=== PATIENT | male | born 1935 | race Caucasian/White ===

== ENCOUNTER 2021-12-23 08:36 | Outpatient (CLI) | payer MEDICARE, SELFPAY ==
--- NOTE | 2021-12-23 09:01 | ECHO_ITS ---
Patient Info Name: Bhupendra Vila Age: 85 years : 1935 Gender: Male Ht: 72 in Wt: 240 lbs BSA: 2.38 m2 HR: 74 bpm BP: 171 / 105 mmHg Exam Date: 12/23/2021 9:23 AM Exam Location: [facility] Pulmonary Patient Status: Outpatient Admit Date: 12/23/2021 Staff Ordering Physician: Randolph Claudio MD Family Protection Specialist: Wood Pelayo, ILENE, RT Attending Provider: Randolph Claudio MD Exam Type: CA echo doppler color flow Study Info Indications I51.89 - Other ill-defined heart diseases Complete two-dimensional, color flow and Doppler transthoracic echocardiogram is performed. Strain analysis performed. Summary 1. Complete two-dimensional, color flow and Doppler transthoracic echocardiogram is performed. 2. LV size and wall thickness is at upper limits of normal; sigmoid hypertrophy. Normal LV systolic function, ejection fraction 65-70%. Diastolic dysfunction is present with elevated left atrial pressures. Global longitudinal strain is abnormal at -11%. Severe left atrial enlargement, moderate right atrial enlargement. Normal mitral valve structure, mild mitral regurgitation. Mild aortic valve sclerosis, no hemodynamically significant stenosis; mild aortic regurgitation. Mild TR, mild pulmonary hypertension, RVSP 38 mmHg. Left Ventricle Left ventricular chamber dimension is normal. Left ventricular systolic function is normal, estimated at 65-70%. The left ventricular diastolic function is abnormal. E/e' 16.8 is abnormal. Right Ventricle Right ventricular chamber dimension is normal. Right ventricular systolic function is normal. Left Atria Left atrial chamber dimension is severely enlarged. Right Atria Right atrial chamber dimension is moderately enlarged. Aortic Valve There is mild aortic valve sclerosis. There is no aortic valve stenosis. There is mild aortic valve regurgitation. Pulmonic Valve The pulmonic valve is not well visualized. Mitral Valve The mitral valve has normal leaflets. There is mild mitral valve regurgitation. Tricuspid Valve The tricuspid valve leaflets are normal. There is mild tricuspid valve regurgitation. Mild pulmonary hypertension, estimated pulmonary arterial systolic pressure is 38 mmHg. Pericardium/Pleural The pericardium appears epicardial fat pad. Inferior Vena Cava Normal inferior vena cava with >50% collapse upon inspiration consistent with normal right atrial pressure, 10 mmHg. Aorta The aortic root size at the sinus of Valsalva is normal. Left Ventricular Outflow Tract Name Value Normal LVOT 2D LVOT Diameter 2.0 cm LVOT Doppler LVOT Peak Gradient 2 mmHg LVOT Mean Gradient 1 mmHg LVOT VTI 16 cm LVOT VTI/AV VTI Ratio 0.8 LVOT Stroke Volume 52 ml LVOT CO 4.5 l/min LVOT CI 1.9 l/min/m2 Mitral Valve Name Value Normal --------
== END 2021-12-23 08:37 | disposition home or self-care (01) ==
LOC: ANHCARD 08:38
PROVIDERS: PCP Family Medicine; Visit Provider Family Medicine
DX: I51.89 Other ill-defined heart diseases (principal); R06.00 Dyspnea, unspecified
CPT/HCPCS: 93306

== ENCOUNTER 2022-01-29 10:42 | Inpatient (IN) | payer MEDICARE, SELFPAY ==
[2022-01-29] VITALS (10 sets, daily range): BP systolic 107–176; BP diastolic 74–110; PULSE 67–104; RESP 15–22; TEMP 36.1–36.6; O2SAT 96–99; BMI 28.8
--- NOTE | ~2022-01-29 | CT_ITS ---
EXAMINATION: CTA chest PE protocol DATE: 01/29/2022 13:18 INDICATION: Dyspnea, shortness of breath. Elevated d-dimer. Covid-positive. TECHNIQUE: Computed tomography angiography (CTA) of the chest was performed with 100 mL Omnipaque-350 intravenous contrast timed to evaluate the pulmonary arteries. Coronal maximum intensity projection 3D-reconstructions were created by the technologist. Automated exposure control and iterative reconst ruction technique were employed. Exam dose: 638.87 mGy-cm total exam DLP. COMPARISON: 01/29/2022 portable AP chest 11/02/2018 CT thorax FINDINGS: There is diagnostic contrast enhancement of the pulmonary arteries and no evidence of pulmo nary embolism. Mild thoracic aortic aneurysm, the aortic arch measuring up to approximately 3.1 cm diameter. Cardiom egaly. No pericardial effusion. No hilar or mediastinal mass lesion or lymphadenopathy. Stable up to approximately 19 mm posterior right apical mass since. There is interval mild increased size of a posterior pleural-based mass at the superior segment of th e left lower lobe, measuring up to approximately 3 cm maximal depth, 6.5 cm transverse dimension. The re are some calcifications within the soft tissue density. There is a much smaller pleural-based opacity in the lingula, measuring 6 mm depth, 18 mm width. Pleural-based 4.7 x 8.7 mm opacity in the right lower lobe, stable since 11/02/2018. Scattered peripheral reticular opacities in both lungs Mild emphysematous changes of the lungs. 4.3 cm cyst at the upper pole of the right kidney. Normal morphology of the adrenal glands. Small sliding hiatal hernia. Prominent osteoarthritic change at both glenohumeral joints Severe degenerative disc disease at C6-7. Mild anterior wedge compression fracture deformity at T2 and T3. More prominent anterior wedge compre ssion fracture deformities at T6 and T8. Diffuse idiopathic skeletal hyperostosis of the thoracic spine. Diffuse osteopenia. IMPRESSION: No evidence of pulmonary embolism Emphysema Chronic pleural based opacities, stable or minimally changed since 11/02/2018 and chronic scattered in terstitial changes Reviewed, dictated and finalized at [facility]. Reviewed, dictated and finalized at [facility]. IMPRESSION: No evidence of pulmonary embolism Emphysema Chronic pleural based opacities, stable or minimally changed since 11/02/2018 an d chronic scattered interstitial changes
--- NOTE | ~2022-01-29 | XR_ITS ---
EXAMINATION: XR chest 1V portable DATE: 01/29/2022 11:19 INDICATION: Shortness of breath. COVID positive. TECHNIQUE: frontal view of the chest was obtained. COMPARISON: Chest radiograph dated 07/27/2017 FINDINGS: Chronic nodular pleural parenchymal scarring at the right apex. Persistent airspace opacity left midl sierra zone corresponding to a previously biopsied pleural-based mass with pathology reportedly consiste nt with nodular fibrosis. Additional subtle opacities in the right mid and left lower lung zones whic h are new since the prior study. No pleural effusion or pneumothorax. The cardiomediastinal silhouett e is within normal limits for AP technique. Tortuous thoracic aorta. Moderate to severe bilateral gle nohumeral osteoarthritis. IMPRESSION: 1. Subtle opacities in the right mid and left lower lung zones which are new since the prior study. D ifferential would include pneumonia, atelectasis or pulmonary edema in the acute setting or more plate keeper aureliano interstitial lung disease. 2. Persistent opacity in the left midlung zone consistent with previously biopsy-proven pleural-based nodular fibrosis. Reviewed, dictated and finalized at [facility]. IMPRESSION: 1. Subtle opacities in the right mid and left lower lung zones which are new si nce the prior study. Differential would include pneumonia, atelectasis or pulmo nary edema in the acute setting or more chronic interstitial lung disease. 2. Persistent opacity in the left midlung zone consistent with previously biops y-proven pleural-based nodular fibrosis.
--- NOTE | 2022-01-29 10:53 | ECG_ITS ---
Measurements Intervals [place] Rate: 75 P: SC: 0 QRS: 21 QRSD: 95 T: 18 QT: 414 QTc: 463 Interpretive Statements ATRIAL FIBRILLATION BASELINE ARTIFACT- I, II, III, AVR, AVL, AVF, V1 ABNORMAL ECG Electronically Signed On 01-29-2022 12:19:06 CDT by Sony Vides D.O.
--- NOTE | 2022-01-29 11:00 | ED.SOB ---
HPI - SOB/Dyspnea General Chief Complaint: Shortness of Breath/Dyspnea Stated Complaint: dizziness, unsteady gait, sob - covid exposure Time Seen by Provider: 01/29/22 10:56 History of Present Illness HPI Narrative: The patient is an 86-year-old male with a history of hypertension, dyslipidemia, diastolic dysfunction, atrial fibrillation, chronic kidney disease, prostate cancer presenting to the emergency department for evaluation of multiple complaints. Patient reports he has been diffusely weak with fatigue over the past 4 days. Patient was recently treated outpatient for urinary tract infection in which he finished his antibiotic course. Patient denies any lingering dysuria or hematuria. He reports that his tested positive for COVID and he subsequently tested positive with an at-home test yesterday. Patient is vaccinated and boosted but does report cough as well as shortness of breath with exertion. He denies any current chest pain. He denies fever, chills, does report mild rhinorrhea and a tickle in his throat. He denies leg swelling or calf pain. Related Data Home Medications Medication Instructions Recorded Confirmed furosemide 40 mg tablet 40 mg PO DAILY PRN 12/03/21 12/03/21 Allergies Allergy/AdvReac Type Severity Reaction Status Date / Time No Known Allergies Allergy Verified 01/29/22 11:03 Review of Systems Review of Systems: CONSTITUTIONAL: Denies fever, chills, or sweats. EYES: Denies visual changes, redness, or discharge. ENT: Reports rhinorrhea, congestion, sore throat CARDIOVASCULAR: Denies chest pain, palpitations, or edema. RESPIRATORY: Reports cough and shortness of breath GASTROINTESTINAL: Denies abdominal pain, nausea, vomiting, or diarrhea. GENITOURINARY: Denies dysuria or hematuria. SKIN: Denies rash or itching. MUSCULOSKELETAL: Denies back pain, joint pain, or myalgia. 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 Chronic pain of right ankle CKD (chronic kidney disease) stage 3, GFR 30-59 ml/min Diastolic dysfunction Dyslipidemia Essential (primary) hypertension History of prostate cancer Mass of left lung Prostate cancer (~2015) Right retinal detachment 03/2016 Unspecified osteoarthritis, unspecified site Vitamin D deficiency Surgical History Surgical History History of back surgery (~2010) Sacrolplasty L3-5 Lumbar Decompression L4-5 w/ Fusion History of bilateral knee replacement (~1999) 1999, 2004 S/P TURP 10/2015 Family History Family History Sibling Hypertension Father Family history of lung cancer, Onset Age: 68 Mother Family history of dementia, Onset Age: 93 Mother Hypertension Familial Alzheimer's disease of late onset Social History Social History Tobacco type: cigarettes Second hand tobacco smoke exposure: No Smoking end date: 07/19/01 Alcohol intake: former Alcohol use details: quit drinking alcohol in 2010 Substance use: never Substance use type: does not use Gender identity (if verbalized by the patient): Male Exam Narrative: GENERAL: Awake, alert, conversant HEAD: Normocephalic, atraumatic. EYES: PERRLA and EOMI. ENT: Nares clear, no rhinorrhea or epistaxis. Mucous membranes dry. NECK: Supple. CHEST: Coarse respirations bilaterally, no wheezing or crackles HEART: Regular rate, sinus rhythm ABDOMEN:Non distended, non tender EXTREMITIES: Normal range of motion. No edema. No calf tenderness, erythema, edema or induration bilaterally. SKIN: Warm, dry, no rash. NEURO:No focal deficits. Alert and oriented x3 Course Vital Signs Vital si
[2022-01-29 11:11] LABS: Basophils Percent Auto 0.3 % (0.2-1.2); Hematocrit 39.2 % (42.0-52.0); Hemoglobin 14.2 g/dL (14.0-18.0); Immature Granulocyte Absolute 0.01 K/mm3 (0.00-0.031); Immature Granulocyte Percent A 0.3 % (0-0.5); Lymphocytes Absolute Auto 0.57 K/mm3 (0.9-3.2); Lymphocytes Percent Auto 16.4 % (18.3-44.2); Mean Corpuscular HGB Conc 36.2 g/dl (32-36); Mean Corpuscular Hemoglobin 31.1 pg (26-34); Mean Corpuscular Volume 85.8 fl (80-100); Mean Platelet Volume 10.3 fl (7.4-10.4); Monocytes Absolute Auto 0.3 K/mm3 (0.1-0.6); Monocytes Percent Auto 9.2 % (2.6-8.5); Neutrophils Absolute Auto 2.6 K/mm3 (1.3-6.7); Neutrophils Percent Auto 73.8 % (45.5-73.1); Platelet Count Result 161 k/mm3 (150-375); Red Blood Count 4.57 M/mm3 (4.6-6.20); Red Cell Distribution Width 13.5 % (11.5-14.5); White Blood Count 3.5 K/mm3 (4.5-10.0)
[2022-01-29 11:29] LABS: Alanine Aminotransferase 27 U/L (6-50); Albumin Level 4.4 g/dL (3.5-5.1); Alkaline Phosphatase 79 U/L (38-126); Anion Gap 7 mmol/L (8-16); Aspartate Amino Transferase 50 U/L (17-59); Bilirubin,Total 0.7 mg/dL (0.2-1.3); Blood Urea Nitrogen 20 mg/dL (9-20); Calcium 8.5 mg/dL (8.4-10.2); Carbon Dioxide 25 mmol/L (22-30); Chloride 84 mmol/L (98-107); Creatine Kinase 313 U/L (55-170); Estimated CRCL calculation 44 ml/min; Estimated Glomerular Filt Rate 48; Glucose 112 mg/dL (65-110); Potassium 4.3 mmol/L (3.4-5.0); Sodium 116 mmol/L (137-145)
[2022-01-29 11:37] LABS: INR 3.6; Prothrombin Time 34.9 Seconds (11.1-14.7)
[2022-01-29 11:38] LABS: Partial Thromboplastin Time 49.4 SECONDS (22.3-36.8)
[2022-01-29 11:39] LABS: NT Pro B Type Natriuretic Pept 1750 pg/mL (5-100); Troponin I 0.398 ng/mL (0.000-0.034)
[2022-01-29] MEDS: SODIUM CHLORIDE 0.9% IV 500 ML 999 ML IV CONT (11:52)
[2022-01-29 11:56] LABS: SARS-CoV-2 RNA PCR Positive
[2022-01-29 12:04] LABS: D Dimer 0.99 ug/mL (<0.48)
[2022-01-29 13:11] LABS: Appearance Urine Clear (Clear); Bilirubin Urine Negative (Negative); Color Urine Yellow (Yellow); Glucose Urine UA Negative (Negative); Ketones Urine Negative (Negative); Leukocyte Esterase Ur Negative LEU/UL (Negative); Nitrate Urine Negative (Negative); Protein Urine Negative (Negative); Specific Grav Ur 1.015 (1.001-1.035); Urobilinogen Urine 0.2 mg/dL (<2.0); pH Urine 6.5 (5.0-9.0)
[2022-01-29 13:16] LABS: Sodium Urine Random 28 meq/L
[2022-01-29 13:19] LABS: Anion Gap 5 mmol/L (8-16); Blood Urea Nitrogen 19 mg/dL (9-20); Calcium 7.9 mg/dL (8.4-10.2); Carbon Dioxide 25 mmol/L (22-30); Chloride 86 mmol/L (98-107); Estimated CRCL calculation 44 ml/min; Estimated Glomerular Filt Rate 48; Glucose 105 mg/dL (65-110); Potassium 4.4 mmol/L (3.4-5.0); Sodium 116 mmol/L (137-145)
[2022-01-29 13:22] LABS: Creatinine Urine 71.3 mg/dL
[2022-01-29 13:23] LABS: Mucus Urine Rare /lpf; RBC Urine 0-2 /hpf (0-2); Squamous Epithelial Cell Urine Rare /hpf (Few); WBC Urine 0-3 /hpf
[2022-01-29 13:54] LABS: Add Urine Microscopic? YES; Blood Urine Trace-Intact (Negative)
--- NOTE | 2022-01-29 13:57 | PM.IMHP ---
H&P: HPI History of Present Illness Date/Time: 01/29/22 1257 Chief Complaint: Dyspnea Narrative: This 86-year-old male patient with significant past medical history of atrial fibrillation, chronic low back pain without sciatica, chronic kidney disease stage 3, diastolic dysfunction heart failure, dyslipidemia, hypertension, history of prostate cancer, left lung mass, vitamin-D deficiency, status post TURP, status post bilateral knee replacements, status post back surgery presents to the emergency room today with complaints of approximately 3-4 days of increased weakness, dyspnea and new cough. He reports that he has increased fatigue. Yesterday his spouse tested positive for COVID 19 and today he feels that he has increasing shortness of breath with exertion upon arrival to the emergency room also learned that he is positive for COVID-19. He has remained afebrile, does report some intermittent chills with a runny nose and a tickle in his throat. Patient has recently been treated for urinary tract infection, has finished all antibiotics and denies any current symptoms of urinary burning, urgency, frequency, hematuria. Emergency room workup was performed and is significant for a sodium level of 116, chloride of 84, troponin 0.398, BNP of 1750, and elevated D-dimer of 0.99. Imaging was performed. Chest x-ray showed a right middle and left lower lobe opacities and persistent opacities in the left mid lung. CTA of the chest was performed secondary to the elevation of the D-dimer and it demonstrated chronic pleural based opacities that are either stable or minimally changed since 11/02/2018 with chronic scattered interstitial changes. There was emphysema noted but no appreciable pulmonary embolism. Other findings on CTA of the chest included mild interval increased size of a posterior pleural-based mass at the superior segment of the left lower lobe measuring up to 3 cm in depth and 6.5 cm transverse dimension. There are some noted calcifications within the soft tissue density. There are scattered peripheral reticular opacities in both lungs with mild emphysematous changes. In addition there is a 4.3 cm cyst at the upper pole of the right kidney with findings also of mild anterior wedge compression fracture deformity at T2 and T3. There is a more prominent anterior wedge compression fracture at T6 and T8. There is diffuse osteopenia of the spine. consult for patient were placed in the ED to include Nephrology as well as Cardiology, labs are ordered to trend serial troponins, and patient is being admitted to the hospital for further management by hospitalist services in conjunction with specialties for correction of his hyponatremia, management of his chronic conditions and further evaluation and monitoring of his acute COVID-19 status. 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 At the time of my assessment patient is without any complaints of chest pain, he reports that he does have some mild shortness of breath that is worse if he tries to move around, he denies any nausea, vomiting, diarrhea or urinary complaints of urgency, frequency, hematuria, or dysuria. Review of Systems Review of Systems: All systems reviewed & are unremarkable except as noted in HPI and below PMFSH Past Medical History Medical History Atrial fibrillation Chronic low back pain without sciatica Chronic pain of right ankle CKD (chronic kidney disease) stage 3, GFR 30-59 ml/min Diastolic dysfunction Dyslipidemia Essential (primary) hypertension History of prostate cancer Mass of left lung Prostate cancer (~2015) Right retinal detachment 03/2016 Unspecified osteoarthritis, unspecified site Vitamin D deficiency Surgical History Surgical History History of back surgery (~2010) Sacrolplasty L3-5 Lumbar Decompre
[2022-01-29 15:02] LABS: Sodium Urine Random 27 meq/L
[2022-01-29] MEDS: ACETAMINOPHEN 325 MG TABLET 650 MG PO (15:03)
[2022-01-29] MEDS: ASPIRIN 81 MG CHEWABLE TABLET 324 MG PO (15:04)
[2022-01-29] MEDS: DEXAMETHASONE SOD PHOS INJ 4 MG/ML VIAL 6 MG IV PUSH (15:06)
[2022-01-29 15:12] LABS: Troponin I 0.018 ng/mL (0.000-0.034)
[2022-01-29] MEDS: SODIUM CHLORIDE 0.9% IV 1,000 ML 125 ML IV CONT ×2 (15:12→23:30)
[2022-01-29] MEDS: ALBUTEROL SULFATE (*SP) AEROSOL 1 PUFF 2 PUFF INHALATION (18:05)
[2022-01-29 19:19] LABS: Anion Gap 9 mmol/L (8-16); Blood Urea Nitrogen 22 mg/dL (9-20); Calcium 8.3 mg/dL (8.4-10.2); Carbon Dioxide 21 mmol/L (22-30); Chloride 88 mmol/L (98-107); Estimated CRCL calculation 41 ml/min; Estimated Glomerular Filt Rate 52; Glucose 146 mg/dL (65-110); Potassium 4.1 mmol/L (3.4-5.0); Sodium 118 mmol/L (137-145)
[2022-01-29 19:29] LABS: Troponin I 0.017 ng/mL (0.000-0.034)
[2022-01-29] MEDS: carvediloL 25 MG TABLET PO (21:46)
[2022-01-29] MEDS: SIMVASTATIN 20 MG TABLET 40 MG PO (21:47)
[2022-01-30] VITALS: BP 146/54; PULSE 81; PULSE 88; RESP 18; RESP 20; TEMP 36.3; O2SAT 98; O2SAT 99
[2022-01-30 00:17] LABS: Sodium 119 mmol/L (137-145)
[2022-01-30 02:00] VITALS: PULSE 82
[2022-01-30] MEDS: ALBUTEROL SULFATE (*SP) AEROSOL 1 PUFF 2 PUFF INHALATION ×3 (02:51→08:09)
[2022-01-30 04:00] VITALS: BP 155/82; PULSE 88; PULSE 92; RESP 20; TEMP 36.6; O2SAT 98
[2022-01-30 05:20] LABS: INR 3.5; Lactate Dehydrogenase 556 U/L (313-618); Prothrombin Time 34.2 Seconds (11.1-14.7)
[2022-01-30 05:22] LABS: Anion Gap 10 mmol/L (8-16); Blood Urea Nitrogen 18 mg/dL (9-20); CRP < 0.5 mg/dL (<1.0); Calcium 8.1 mg/dL (8.4-10.2); Carbon Dioxide 19 mmol/L (22-30); Chloride 92 mmol/L (98-107); Estimated CRCL calculation 48 ml/min; Estimated Glomerular Filt Rate > 60; Glucose 133 mg/dL (65-110); Potassium 4.1 mmol/L (3.4-5.0); Sodium 121 mmol/L (137-145)
[2022-01-30 05:56] LABS: Thyroid Stimulating Hormone Reflex 0.229 uIU/mL (0.465-4.68)
[2022-01-30 05:57] LABS: Cortisol Random 5.74 ug/dL
[2022-01-30 06:00] VITALS: PULSE 86
[2022-01-30 06:32] LABS: Free T4 Free Thyroxine Reflex 1.36 ng/dL (0.78-2.19)
--- NOTE | 2022-01-30 07:18 | PM.IMPN ---
Subjective Date/time seen: 01/30/22 07:18 Objective Data Vital Signs Vital Signs: Vital Signs - 24 hr 01/29/22 10:49 01/29/22 11:27 01/29/22 11:53 Temperature Pulse Rate 71 67 Respiratory Rate 17 19 Blood Pressure 176/110 H 107/82 Pulse Oximetry 97 96 98 Oxygen Delivery Room Air Room Air 01/29/22 15:17 01/29/22 16:34 01/29/22 17:50 Temperature Pulse Rate 76 80 Respiratory Rate 20 15 Blood Pressure 158/104 H 126/86 Pulse Oximetry 98 98 Oxygen Delivery Room Air 01/29/22 18:00 01/29/22 17:25 01/29/22 20:00 Temperature 96.9 F L 97.8 F Pulse Rate 80 78 94 Respiratory Rate 22 H 18 Blood Pressure 157/74 H 159/99 H Pulse Oximetry 99 99 Oxygen Delivery 01/29/22 21:46 01/29/22 20:00 01/29/22 20:00 Temperature Pulse Rate 74 104 H 104 H Respiratory Rate 18 Blood Pressure Pulse Oximetry 99 Oxygen Delivery Room Air 01/29/22 22:00 01/30/22 00:00 01/30/22 00:00 Temperature Pulse Rate 96 81 81 Respiratory Rate 18 Blood Pressure Pulse Oximetry 99 Oxygen Delivery Room Air 01/30/22 00:00 01/30/22 02:00 01/30/22 04:00 Temperature 97.4 F L Pulse Rate 88 82 92 Respiratory Rate 20 Blood Pressure 146/54 H Pulse Oximetry 98 Oxygen Delivery 01/30/22 04:00 01/30/22 04:00 01/30/22 06:00 Temperature 97.8 F Pulse Rate 92 88 86 Respiratory Rate 20 20 Blood Pressure 155/82 H Pulse Oximetry 98 98 Oxygen Delivery Room Air Intake/Output Intake/Output: Intake & Output 01/27/22 01/28/22 01/29/22 01/30/22 23:59 23:59 23:59 23:59 Intake Total 2100 200 Output Total 900 1200 Balance 1200 -1000 Meds/Results Medications: Active Medications Generic Name Dose Route Start Last Admin Trade Name Freq PRN Reason Stop Dose Admin Acetaminophen 650 mg 01/29/22 12:56 01/29/22 15:03 Acetaminophen 325 Mg Tablet PO 650 mg Q4H PRN Administration Mild Pain (1-3) or Fever Albuterol 2 puff 07/14/22 14:15 01/30/22 02:51 Albuterol Sulfate (*Sp) Aerosol 1 Puff INHALATION 2 puff Q6HRT SHAWANDA Administration Carvedilol 25 mg 01/29/22 21:00 01/29/22 21:46 Carvedilol 25 Mg Tablet PO 25 mg Q12HR SHAWANDA Administration Dexamethasone Sodium Phosphate 6 mg 01/30/22 09:00 Dexamethasone Sod Phos Inj 10 Mg/Ml 1 Ml Vial IV PUSH DAILY [facility] Sodium Chloride 1,000 mls @ 30 mls/hr 01/29/22 13:00 01/30/22 06:45 Normal Saline Iv IV CONT 30 mls/hr .Q24H SHAWANDA Infusion Azithromycin 500 mg in 250 mls @ 250 mls/hr 01/30/22 14:00 Zithromax IVPB Q24H SHAWANDA Ondansetron HCl 4 mg 01/29/22 12:56 Ondansetron Inj 4 Mg/2 Ml Vial IV PUSH Q4H PRN Nausea Simvastatin 40 mg 01/30/22 09:00 Simvastatin 20 Mg Tablet PO QAM SHAWANDA Simvastatin 40 mg 01/29/22 21:00 01/29/22 21:47 Simvastatin 20 Mg Tablet PO 40 mg HS SHAWANDA Administration Umeclidinium Acme 1 puff 01/30/22 08:00 Umeclidinium Acme 62.5 Mcg Ellipta INHALATION DAILYRT [facility] Vitamin D 2,000 units 01/30/22 09:00 Cholecalciferol 1,000 Units Tablet PO DAILY [facility] Warfarin Sodium 4 mg 01/29/22 17:00 Warfarin (*Pbkc) 4 Mg Tablet PO Q48H [facility] Warfarin Sodium 3 mg 01/30/22 17:00 Warfarin (*Pbkc) 3 Mg Tablet PO Q48H [facility] Radiology Results: ITS Impressions Chest X-Ray 01/29/22 11:19 IMPRESSION: 1. Subtle opacities in the right mid and left lower lung zones which are new since the prior study. Differential would include pneumonia, atelectasis or pulmonary edema in the acute setting or more chronic interstitial lung disease. 2. Persistent opacity in the left midlung zone consistent with previously biopsy-proven pleural-based nodular fibrosis. Chest CTA 01/29/22 13:18 IMPRESSION: No evidence of pulmonary embolism Emphysema Chronic pleural based opacities, stable or minimally changed since 11/02/2018 and chronic scattered interstitial changes Labs Labs:
[2022-01-30 08:00] VITALS: BP 175/102; PULSE 80; PULSE 90; PULSE 92; RESP 18; RESP 20; TEMP 36.8; O2SAT 96; O2SAT 98
[2022-01-30 08:00] LABS: Total Triiodothyronine (T3) 0.82 NG/ML (0.97-1.69)
[2022-01-30] MEDS: UMECLIDINIUM BROMIDE 62.5 MCG ELLIPTA 1 PUFF INHALATION (08:09)
--- NOTE | 2022-01-30 09:04 | PM.CNCAR ---
Assessment and Plan Assessment and plan (1) Elevated troponin: Code(s): R77.8 - Other specified abnormalities of plasma proteins Status: Acute Plan 86-year-old man with: Spurious mild elevation of the 1st troponin several of was done in the emergency room. The 2nd and 3rd samples are completely within normal limits. There is no clinical or electrocardiographic evidence of an acute coronary syndrome. The patient has tested positive for COVID-19 but does not seem to have any clear-cut reason that he needs to be hospitalized. Obviously is hyponatremia is a concern. His atrial fibrillation is chronic rate controlled and asymptomatic he is anticoagulated with warfarin. There is no other inpatient cardiac evaluation that seems to be needed at this time. I will sign off his case if you have further cardiac questions please let me know Richar Castellon MD [facility] History of Present Illness History of Present Illness Consult date/time: 01/30/22 09:04 Reason For Visit: elevated troponin,hyonatremia, covid 19 Narrative: This is an 86-year-old gentleman that I am seeing at the request of the ER staff says and hospitalist because he had an elevated troponin level that was sampled when he was in the emergency room yesterday. The patient is not known to have any cardiac problems prior to this and is not reporting any symptoms that would suggest an acute coronary syndrome. He came to the hospital with a multitude of complaints the principal reason was that he was tested at home and found to have COVID-19. He and his were both feeling poorly and they both tested positive. For reasons that are not clear he elected to come to the emergency room and be evaluated. In the emergency department he was found to be significantly hyponatremic and I believe for that reason was admitted to the hospital. For reasons that are not apparent troponin levels were sampled and the 1st 1 was elevated at 0.3. The 2nd and 3rd samples are within normal range. Because of this I am seeing him in consultation today. According to the records he has chronic permanent atrial fibrillation and previously been seen in our office by Dr. Norris. He takes warfarin for systemic anticoagulation. There was a recent echocardiogram done in the the outpatient setting about a month ago which demonstrated normal LV systolic function, no wall motion abnormalities and very small amount of mitral and tricuspid regurgitation. Review of Systems Constitutional: Constitutional: Reports no additional constitutional complaints Eyes: Eyes: Reports no additional eye complaints ENT: Reports system reviewed and no additional complaints, except as documented Cardiovascular: Cardiovascular: Reports no additional cardiovascular complaints Respiratory: Respiratory: Reports cough Gastrointestinal: Gastrointestinal: Reports no additional gastrointestinal complaints Musculoskeletal: Musculoskeletal: Reports no additional musculoskeletal complaints Integumentary/Breasts: Skin/Breast: Reports system reviewed and no additional complaints, except as docu Neurologic: Reports system reviewed and no additional complaints, except as documented Endocrine: Endocrine: Reports no additional endocrine complaints Hematologic/Lymphatic: Hematologic/Lymphatic: Reports no additional hematologic/lymphatic complaints Allergic/Immunologic: Allergic/Immunologic: Reports no additional allergic/immunologic complaints [facility] Past Medical History Medical History Atrial fibrillation Chronic low back pain without sciatica Chronic pain of right ankle CKD (chronic kidney disease) stage 3, GFR 30-59 ml/min Diastolic dysfunction Dyslipidemia Essential (primary) hypertension History of prostate cancer Mass of left lung Prostate cancer (~2015) Right retinal detachment 03/2016 Unspecified osteoarthritis, unspecified site Vitamin D deficiency
[2022-01-30 10:02] LABS: Sodium 124 mmol/L (137-145)
[2022-01-30] MEDS: CHOLECALCIFEROL 1,000 UNITS TABLET 2000 UNITS PO (10:18)
[2022-01-30] MEDS: carvediloL 25 MG TABLET PO (10:18)
[2022-01-30] MEDS: SIMVASTATIN 20 MG TABLET 40 MG PO (10:18)
[2022-01-30 10:22] LABS: Creatinine Urine 60.3 mg/dL; Total Protein Urine Random 23 mg/dL; Ur Ttl Prot Creatinine Ratio 0.38 mg/mg (0-0.20)
--- NOTE | 2022-01-30 10:54 | PC.NURSE ---
Patient notified of risks of leaving AMA. Dr. Kimbrough and Dr. Sharp notified. Follow up instructions given to patient. Patient signed AMA form. Nannette Landers RN
--- NOTE | 2022-01-30 12:38 | PM.PNNEP ---
Subjective Date/time seen: 01/30/22 12:38 Notified on consult yesterday evening regarding hyponatremia. I had been managing his sodium levels overnight with adjustment in his IVF to ensure overcorrection did not occur. However, I was unable to see the patient today for formal consultation as the patient left AMA earlier this AM. Objective Data Labs Labs: Laboratory Tests 01/29/22 11:02 01/30/22 09:16
--- NOTE | 2022-01-30 17:55 | PM.DS ---
DS: Admitting Diagnosis Discharge Date 01/30/22 Admitting Diagnosis COVID19, hyponatremia DS: Discharge Diagnosis Discharge Diagnosis (1) COVID-19: Code(s): U07.1 - COVID-19 Status: Acute Assessment and Plan: - Not a candidate for Remdesivir as he is not currently requiring supplemental oxygenation. - Monitor inflammatory marker trends of LDH, Ferritin, CRP daily. - Start Dexamethasone 6 mg IVP daily - Monitor labs and vitals including pulse oximetry - CXR and CTA with chronic lung findings. - Consider Pulmonology consult if any worsening of Respiratory status in setting of having prior existing lung masses. - Incruse Ellipta daily and Albuterol Q6 hrs. - Initiate Azithromycin. (2) Hyponatremia: Code(s): E87.1 - Hypo-osmolality and hyponatremia Status: Acute Assessment and Plan: - Currently 116. - Asymptomatic Neurologically - Likely secondary to active COVID-19 infection - Continue IVF of NS at 125 ml/hr with goal of slow correction. - Nephrology is consulted. - urine sodium and osmolality pending and serum osmolality pending. - Consider fluid restriction if concern for SIADH. (3) Elevated troponin: Code(s): R77.8 - Other specified abnormalities of plasma proteins Status: Acute Assessment and Plan: - No known hx of CAD. Suspect demand ischemia in setting of patient having no CP. - Cardiology consulted. - Heart score: 6 - Serial Troponins and EKG's ordered. - Telemetry - ASA 325 mg ordered. - ECHO ordered. (4) Atrial fibrillation: Code(s): I48.91 - Unspecified atrial fibrillation Status: Chronic Assessment and Plan: - Controlled rate in the 70s. - Chronically in A-fib. - Anticoagulated with Warfarin. Current INR is 3.6. - Monitor daily labs and continue Warfarin therapy. - Cardiology consulted. (5) Elevated d-dimer: Code(s): R79.89 - Other specified abnormal findings of blood chemistry Status: Acute Assessment and Plan: - Elevated at 0.99 - CTA of chest performed and is negative for any PE. Emphysema and chronic pleural based opacities and scattered chronic interstitial changes are noted. - Likely secondary to current diagnosis of COVID-19. (6) HTN (hypertension): Code(s): I10 - Essential (primary) hypertension Status: Acute Assessment and Plan: - Currently stable at 107/82. - Will continue home medications once they have been verified. - Monitor labs and vitals. (7) HLD (hyperlipidemia): Code(s): E78.5 - Hyperlipidemia, unspecified Status: Acute Assessment and Plan: - LFT's unremarkable. - Continue Simvastatin 40 mg daily. (8) CKD (chronic kidney disease) stage 3, GFR 30-59 ml/min: Code(s): N18.30 - Chronic kidney disease, stage 3 unspecified Status: Acute Assessment and Plan: - Current renal function is 1.40/20 and is at baseline when compared historically as it is normally 1.4-1.6. - Nephrology will also be managing patient as they have been consulted for his Hyponatremia. - Minimize as many nephrotoxic medications as possible. (9) Diastolic heart failure: Code(s): I50.30 - Unspecified diastolic (congestive) heart failure Status: Acute Assessment and Plan: - Last ECHO was 12/23/21: Demonstrated an EF of 65-70%, and there is + Diastolic dysfunction with elevated pressures. There is mild pulmonary HTN. - Pt. requires hydration for correction of the Hyponatremia. Will monitor for any signs of Hypervolemia. DS: Summary Hospital Course Reason for hospitalization: COVDC19, [facility] Course: 86M with a past medical history significant for atrial fibrillation, chronic low back pain without sciatica, chronic kidney disease stage 3, diastolic dysfunction heart failure, dyslipidemia, hypertension, history of prostate cancer, left lung mass, vitamin-D deficiency, status post TURP, status post bilateral knee replacements, status post b
[2022-02-03 01:57] LABS: Osmolality, Urine 333 mOsm/kg (50-1200)
[2022-02-03 17:42] LABS: Albumin 3.4 g/dL (3.8-4.8); Alpha 1 Globulin 0.3 g/dL (0.2-0.3); Alpha 2 Globulin 0.7 g/dL (0.5-0.9); Beta 1 Globulin 0.3 g/dL (0.4-0.6); Gamma Globulin 1.3 g/dL (0.8-1.7); Protein, Total 6.4 g/dL (6.1-8.1)
[2022-02-04 08:40] LABS: Kappa\\Lambda Light Chains 1.19 (0.26-1.65); Lambda Light Chain 38.3 mg/L (5.7-26.3)
[2022-02-04 19:26] LABS: Abnormal Protein Band 1 1 mg/dL; Total Protein/Creatinine Ratio 356 mg/g creat (22-128)
== END 2022-01-30 11:11 | disposition left against medical advice (07) | DRG 178 ==
LOC: ANHED 14:46 → ANHIMU 01-30 10:56
PROVIDERS: Internal Medicine Nephrology; Nurse Practitioner Adult Health; Admitting Provider Internal Medicine; Emergency Provider Emergency Medicine; PCP Family Medicine; Visit Provider Family Medicine
DX: U07.1 COVID-19 (principal); E87.1 Hypo-osmolality and hyponatremia; I13.0 Hypertensive heart and chronic kidney disease with heart failure and stage 1 through stage 4 chronic kidney disease, or unspecified chronic kidney disease; I50.32 Chronic diastolic (congestive) heart failure; I27.20 Pulmonary hypertension, unspecified; J43.9 Emphysema, unspecified; R77.8 Other specified abnormalities of plasma proteins; R91.8 Other nonspecific abnormal finding of lung field; I48.91 Unspecified atrial fibrillation; R79.89 Other specified abnormal findings of blood chemistry; E78.5 Hyperlipidemia, unspecified; N18.30 Chronic kidney disease, stage 3 unspecified; M54.50 Low back pain, unspecified; E55.9 Vitamin D deficiency, unspecified; Z96.653 Presence of artificial knee joint, bilateral; Z79.01 Long term (current) use of anticoagulants; Z79.899 Other long term (current) drug therapy; Z85.46 Personal history of malignant neoplasm of prostate; Z87.891 Personal history of nicotine dependence; Z98.1 Arthrodesis status
CPT/HCPCS: 36415; 71045; 71275; 80048; 80053; 81001; 82533; 82550; 82570; 82728; 83615; 83880; 83883; 83930; 83935; 84155; 84156; 84165; 84166; 84295; 84300; 84439; 84443; 84480; 84484; 85025; 85380; 85610; 85730; 86140; 93005; 94640; 96360; 99285; A9270; C9803; J0456; J1100; J7030; J7040; Q9967; U0003; U0005

== ENCOUNTER 2022-02-19 07:32 | Outpatient (CLI) | payer MEDICARE, SELFPAY ==
--- NOTE | ~2022-02-19 | US_ITS ---
EXAMINATION: US scrotum doppler DATE: 02/19/2022 08:55 INDICATION: Acute epididymitis. Scrotal pain. TECHNIQUE: Grayscale and Doppler ultrasound images of the testes were obtained. COMPARISON: None. FINDINGS: The right testis measures 3.3 x 2.0 x 2.1 cm. The left testis measures 3.4 x 2.5 x 1.7 cm. Right testis is hypoechoic. There is vascular flow to both testes. The right epididymis demonstrate c ysts measuring up to 5 mm. There are calcifications in the tail of the epididymis, which is hyperemic . The left epididymis contains a 9 mm cyst. There is no varicocele. There is a moderate-sized right h ydrocele. IMPRESSION: 1. Hyperemic tail of right epididymis, consistent with epididymitis. 2. Hypoechoic right testis with normal vascular flow, which may be orchitis or infarct. 3. Moderate-sized right hydrocele. Reviewed, dictated and finalized at location A.
== END 2022-02-19 07:33 | disposition home or self-care (01) ==
LOC: CHSIMG 07:34
PROVIDERS: PCP Family Medicine; Visit Provider Urology
DX: N45.1 Epididymitis (principal)
CPT/HCPCS: 76870; 93976

== ENCOUNTER 2022-04-08 13:01 | Emergency (ER) | payer MEDICARE, SELFPAY ==
--- NOTE | ~2022-04-08 | XR_ITS ---
XR thoracic spine 3V 04/08/2022 13:30 Indication: Fall. Severe back pain. Procedure: 3 views of the thoracic spine Comparison: CT dated 11/02/2018 and 01/29/2022 Findings: There are chronic compression fractures of T6, T7 and T8. Generalized osteopenia. There is scoliosis. There is advanced multilevel spondylosis. T1-T5 are not well visualized on the lateral vie w. Cardiomegaly. Pedicles are grossly intact. Impression: 1: Chronic compression fractures of T6, T7 and T8. Limited examination due to osteopenia and patient body habitus. 2: Limited visualization of T1-T5 on lateral view. 3: Severe lumbar spondylosis with scoliosis. Reviewed, dictated and finalized at location A. Impression: 1: Chronic compression fractures of T6, T7 and T8. Limited examination due to o steopenia and patient body habitus. 2: Limited visualization of T1-T5 on lateral view. 3: Severe lumbar spondylosis with scoliosis.
--- NOTE | ~2022-04-08 | XR_ITS ---
XR lumbar spine 2-3V 04/08/2022 13:30 Indication: Status post fall. Severe back pain. Procedure: 3 views lumbar spine Comparison: 12/01/2016 Findings: There is a chronic compression fracture of L2 without significant interval change allowing for differences of technique. There is mild chronic superior endplate compression deformity of T12, u nchanged. There is disc narrowing at L2-3 through L5-S1. There are prosthetic disc devices at L4-5. T here are pedicle screws transfixing L4-5 posteriorly. There are changes of sacral plasty with radiopa que material in the sacral ala bilaterally. Impression: 1: Stable chronic L2 compression fracture. 2: Severe lumbar spondylosis. Reviewed, dictated and finalized at location A. Impression: 1: Stable chronic L2 compression fracture. 2: Severe lumbar spondylosis.
[2022-04-08 13:05] VITALS: BP 200/104; PULSE 87; RESP 20; TEMP 36.4; O2SAT 98
--- NOTE | 2022-04-08 13:10 | ED.FALL ---
HPI - Fall General Chief Complaint: Fall Stated Complaint: fall/back pain/ surgery x2 weeks History of Present Illness HPI Narrative: Pt had low back surgery in [facility] several weeks ago. Pt says he fell a week ago and hurt the right side of his upper back but improved then today he fell and says it hurts in his mid back and is much worse when he tries to move. Pt took muscle relaxer and advil which always makes him slur his speech but has not relieved his pain. Pt denies numbness or weakness or problems with bladder or bowels. Related Data Allergies Allergy/AdvReac Type Severity Reaction Status Date / Time No Known Allergies Allergy Verified 04/03/22 09:08 Review of Systems Review of Systems: All systems reviewed & are unremarkable except as noted in HPI and below PMFSH Past Medical History Medical History Atrial fibrillation Chronic low back pain without sciatica Chronic pain of right ankle CKD (chronic kidney disease) stage 3, GFR 30-59 ml/min Diastolic dysfunction Dyslipidemia Essential (primary) hypertension History of prostate cancer Mass of left lung Prostate cancer (~2015) Right retinal detachment 03/2016 Unspecified osteoarthritis, unspecified site Vitamin D deficiency Surgical History Surgical History History of back surgery (~2010) Sacrolplasty L3-5 Lumbar Decompression L4-5 w/ Fusion History of bilateral knee replacement (~1999) 1999, 2004 S/P TURP 10/2015 Family History Family History Sibling Hypertension Father Family history of lung cancer, Onset Age: 68 Mother Family history of dementia, Onset Age: 93 Mother Hypertension Familial Alzheimer's disease of late onset Social History Social History Smoking status: Former smoker Tobacco type: cigars Second hand tobacco smoke exposure: No Smoking end date: 07/19/01 Alcohol intake: former Alcohol use details: quit drinking alcohol in 2010 Substance use: never Substance use type: does not use Gender identity (if verbalized by the patient): Male Spiritual care concerns: No Exam Const: General: healthy appearing and no acute distress Nutritional Appearance: well nourished Orientation/consciousness: patient oriented x3 Limitations: no limitations HENMT: Head: normal to inspection Eyes: Conjunctivae: conjunctivae normal Pupils: Equal, round and reactive pupils present EOM: EOMs intact bilaterally Neck: Neck: normal visual inspection and no meningeal signs Chest: Chest palpation & inspection: normal inspection of the chest Resp: Effort & Inspection: normal respiratory effort Auscultation: clear to auscultation bilaterally Cardio: Rate: regular rate Rhythm: regular rhythm GI: Auscultation: normal bowel sounds Back/Spine/Pelvis: Other: mid mario tender to palpation Skin: General skin exam: normal color Rashes: no rashes Wounds: no wounds Neuro: General: patient oriented x3 Other: slurring speech (chronic per pt) Extrem: General: normal to inspection and no clubbing, cyanosis or edema Psych: Mental Status: mental status grossly normal Affect: normal affect Attitude: cooperative Course Vital Signs Vital signs: Vital Signs Temperature 97.6 F 04/08/22 13:05 Pulse Rate 87 04/08/22 13:05 Respiratory Rate 20 04/08/22 13:05 Blood Pressure 200/104 H 04/08/22 13:05 Pulse Oximetry 98 04/08/22 13:05 Temperature 97.3 F L 04/08/22 15:10 Pulse Rate 92 04/08/22 15:10 Respiratory Rate 18 04/08/22 15:10 Blood Pressure 185/86 H 04/08/22 15:10 Pulse Oximetry 98 04/08/22 15:10 Discharge Plan Discharge Clinical Impression: Back pain Patient Disposition: Home, Self-Care Condition: Improved Instructions: Antibiotic Form, Tevin
[2022-04-08] MEDS: fentaNYL CITRATE INJ (*CRX) 100 MCG/2 ML VIAL 50 MCG IV PUSH (13:14)
[2022-04-08 15:10] VITALS: BP 185/86; PULSE 92; RESP 18; TEMP 36.3; O2SAT 98
== END 2022-04-08 15:13 | disposition home or self-care (01) ==
PROVIDERS: Emergency Provider Emergency Medicine; PCP Family Medicine
DX: M54.9 Dorsalgia, unspecified (principal); W19.XXXA Unspecified fall, initial encounter; I13.10 Hypertensive heart and chronic kidney disease without heart failure, with stage 1 through stage 4 chronic kidney disease, or unspecified chronic kidney disease; N18.30 Chronic kidney disease, stage 3 unspecified; I48.91 Unspecified atrial fibrillation; E78.5 Hyperlipidemia, unspecified; E55.9 Vitamin D deficiency, unspecified; Z85.46 Personal history of malignant neoplasm of prostate; Z87.891 Personal history of nicotine dependence; Z79.01 Long term (current) use of anticoagulants
CPT/HCPCS: 72072; 72100; 96374; 99284; J3010

== ENCOUNTER 2022-04-20 10:59 | Outpatient (RCR) | payer MEDICARE, SELFPAY ==
--- NOTE | 2022-04-20 12:01 | PTOPEVAL1 ---
Assessment and note entered by Tatum Allen, PT Evaluation Information Assessment Status Evaluation Diagnosis thoracic spine pain Onset 03/22/22 Subjective Information Bhupendra Vila reports he fell 4 weeks ago. He tripped over a rug and landed on his left knee. He fell a second time 2 weeks ago when he was drying off after showering. He fell on his left knee again. He is having pain around the left shoulder blade. He notes pain in his left ribs when he coughs. He underwent x-rays of his ribs and back which were negative for fractures. He previously used a cane for walking but since his first fall, he has been using a rollator walking. He notes increased left shoulder blade pain when he reaches with the left arm and when the left shoulder blade touches something. He lives with his in a single story home with 2 steps to get in. Reported Pain Level Pain Score 4: Self Report Assessment PT Clinical Summary Bhupendra Vila present with left thoracic spine pain following 2 falls in the last 4 weeks. He reports increased pain when reaching with the left arm, coughing, and trying to lay down. He objectively demonstrates poor posture, decreased and painful left shoulder and cervical AROM, decreased left shoulder strength, decreased core strength, impaired balance, impaired gait, and decreased functional abilities. His Tinetti Balance score indicates he is a high fall risk. He will benefit from skilled PT to address these limitations. Plan of Care Interventions Electrical Stimulation,Hot Pack/Cold Pack,Manual Therapy,Neuro Re-education,Patient/Caregiver Educati,Therapeutic Exercise PT Services Indicated Yes Treatment Frequency and 3 times a week for 12 visits Duration These treatments will address the objective and functional deficits as defined above. The patient will be advanced safely and appropriately in order for the patient to progress towards his/her prior level of function. Additional exercises will be introduced and as well as a comprehensive home exercise program upon discharge, if needed, ?to ensure carryover of functional gains achieved in the clinic. This treatment plan has been reviewed and agreement upon by the patient.
--- NOTE | 2022-07-22 14:42 | PCPTNOTE ---
07/22/22: The patient has not attended skilled PT since 04/30/22. He is being discharged. Goals were not met as of last visit. Tatum Allen, PT
== END 2022-04-30 23:59 | disposition home or self-care (01) ==
LOC: CHSPT 10:59
PROVIDERS: Visit Provider Nurse Practitioner
DX: M54.6 Pain in thoracic spine (principal)
CPT/HCPCS: 97014; 97110; 97161; G0283

== ENCOUNTER 2022-05-18 13:55 | Outpatient (CLI) | payer MEDICARE, SELFPAY ==
[2022-05-18 19:00] LABS: Basophils Percent Auto 0.2 % (0.2-1.2); Eosinophils Absolute Auto 0.1 K/mm3 (0-0.3); Eosinophils Percent Auto 1.6 % (0-4.4); Hematocrit 42.1 % (42.0-52.0); Hemoglobin 13.7 g/dL (14.0-18.0); Immature Granulocyte Absolute 0.02 K/mm3 (0.00-0.031); Immature Granulocyte Percent A 0.4 % (0-0.5); Lymphocytes Absolute Auto 0.62 K/mm3 (0.9-3.2); Lymphocytes Percent Auto 10.9 % (18.3-44.2); Mean Corpuscular HGB Conc 32.5 g/dl (32-36); Mean Corpuscular Hemoglobin 32.1 pg (26-34); Mean Corpuscular Volume 98.6 fl (80-100); Mean Platelet Volume 10.2 fl (7.4-10.4); Monocytes Absolute Auto 0.5 K/mm3 (0.1-0.6); Monocytes Percent Auto 9.5 % (2.6-8.5); Neutrophils Absolute Auto 4.4 K/mm3 (1.3-6.7); Neutrophils Percent Auto 77.4 % (45.5-73.1); Platelet Count Result 211 k/mm3 (150-375); Red Blood Count 4.27 M/mm3 (4.6-6.20); Red Cell Distribution Width 14.4 % (11.5-14.5); White Blood Count 5.7 K/mm3 (4.5-10.0)
[2022-05-18 19:15] LABS: Alanine Aminotransferase 16 U/L (6-50); Albumin Level 4.3 g/dL (3.5-5.1); Alkaline Phosphatase 112 U/L (38-126); Anion Gap 14 mmol/L (8-16); Aspartate Amino Transferase 26 U/L (17-59); Bilirubin,Total 0.4 mg/dL (0.2-1.3); Blood Urea Nitrogen 24 mg/dL (9-20); Calcium 8.8 mg/dL (8.4-10.2); Carbon Dioxide 29 mmol/L (22-30); Chloride 91 mmol/L (98-107); Estimated Glomerular Filt Rate 52; Glucose 108 mg/dL (65-110); Potassium 3.7 mmol/L (3.4-5.0); Sodium 134 mmol/L (137-145)
== END 2022-05-18 13:56 | disposition home or self-care (01) ==
LOC: ANHGOSHLAB 13:59
PROVIDERS: PCP Family Medicine; Visit Provider Family Medicine
DX: E87.1 Hypo-osmolality and hyponatremia (principal); I48.91 Unspecified atrial fibrillation; I12.9 Hypertensive chronic kidney disease with stage 1 through stage 4 chronic kidney disease, or unspecified chronic kidney disease; N18.30 Chronic kidney disease, stage 3 unspecified
CPT/HCPCS: 36415; 80053; 84443; 85025

== ENCOUNTER 2022-06-05 10:31 | Outpatient (CLI) | payer MEDICARE, SELFPAY ==
--- NOTE | ~2022-06-05 | MR_ITS ---
EXAMINATION: MR thoracic spine wo con DATE: 06/05/2022 11:37 INDICATION: Mid back pain. TECHNIQUE: Magnetic resonance imaging (MRI) of the thoracic spine was performed without intravenous c ontrast. COMPARISON: Chest CT 01/29/2022 FINDINGS: There is 13 degrees dextroscoliosis of thoracic spine. There is kyphosis of thoracic spine. There is a chronic compression fracture of T2 with 1/5 loss of height. There is a burst fracture of T5 with 2/5 loss of height and edema-like marrow signal intensity. There is a chronic burst fracture of T6 with 2/5 loss of height. There is a burst fracture of T7 with 3/5 loss of height and edema-like marrow signal intensity. There is a burst fracture of T8 with 2/5 loss of height and edema-like usha ow signal intensity. There is mildly decreased disc height at T2-T3 and T5-T6. There is epidural lipo matosis in mid thoracic spine. At T5-T6, the disc is bulging with mild central canal stenosis. At T7- T8, the disc is bulging with mild central canal stenosis. There is multilevel facet joint osteoarthri tis and severe on the right from T1-T2 through T5-T6 and severe on the left at T2-T3. There is ankylo sis of left facet joint at T1-T2 with mild hypertrophy. There is multilevel mild neural foraminal destini nosis bilaterally. On the right, there is moderate neural foraminal stenosis at T5-T6 and T6-T7. On t he left, there is moderate neural foraminal stenosis at T5-T6. The spinal cord signal intensity is no rmal. There are cysts in the kidneys measuring up to 4.8 cm on the right. IMPRESSION: 1. Subacute burst fractures at T5-T7, worsened from 01/29/2022. 2. Subacute T8 burst fracture, stable from 01/29/22. 3. Mild thoracic spondylosis. 4. Thoracic kyphosis and dextroscoliosis. Reviewed, dictated and finalized at location A. LER OPERATOR
== END 2022-06-05 10:32 | disposition home or self-care (01) ==
PROVIDERS: PCP Family Medicine; Visit Provider Family Medicine
DX: M54.6 Pain in thoracic spine (principal); M47.894 Other spondylosis, thoracic region; S22.051A Stable burst fracture of T5-T6 vertebra, initial encounter for closed fracture; S22.061A Stable burst fracture of T7-T8 vertebra, initial encounter for closed fracture; X58.XXXA Exposure to other specified factors, initial encounter
CPT/HCPCS: 72146

== ENCOUNTER 2022-06-25 15:56 | Outpatient (CLI) | payer MEDICARE, SELFPAY ==
--- NOTE | ~2022-06-25 | XR_ITS ---
EXAMINATION: XR thoracic spine 2V DATE: 06/25/2022 16:32 INDICATION: Thoracic spine pain TECHNIQUE: AP, lateral and lateral swimmer's views of the thoracic spine were obtained. COMPARISON: 03/19/2022; MRI, 06/05/2022 FINDINGS: Subacute burst fractures described at T5, T6, and T7 appear to be stable. There is also a c hronic burst fracture of T8 without significant change. Mild thoracic spondylosis is noted. No acute findings are evident. IMPRESSION: 1. Apparently stable burst fractures from T5 through T8. Reviewed, dictated and finalized at location A. RTMENT ASSISTANT
== END 2022-06-25 15:57 | disposition home or self-care (01) ==
PROVIDERS: PCP Family Medicine; Visit Provider Neurological Surgery
DX: M54.6 Pain in thoracic spine (principal); S22.051A Stable burst fracture of T5-T6 vertebra, initial encounter for closed fracture; S22.061A Stable burst fracture of T7-T8 vertebra, initial encounter for closed fracture; T14.90XA Injury, unspecified, initial encounter
CPT/HCPCS: 72070

== ENCOUNTER 2022-08-13 12:09 | Outpatient (CLI) | payer MEDICARE, SELFPAY ==
--- NOTE | ~2022-08-13 | DEXA_ITS ---
Bone Density Report Name: PREET KERNS Age: 86 Sex: Male Ethnicity: White Date of : 1935 Indication: screening for osteoporosis; height loss; prior fracture; cancer; Referring Provider: Kevin Sheldon Study: Bone densitometry was performed. Exam Date: August 13, 2022 Accession number: [id number] Bone Density: Region BMD T-score Z-score Classification AP Spine(L1, L2) 0.865 -1.7 -0.4 Osteopenia Femoral Neck (Left) 0.711 -1.6 0.1 Osteopenia Total Hip (Left) 0.842 -1.3 0.0 Osteopenia Femoral Neck (Right) 0.752 -1.3 0.4 Osteopenia Total Hip (Right) 0.838 -1.3 0.0 Osteopenia Femoral Neck Mean 0.731 -1.5 0.2 Osteopenia Total Hip Mean 0.840 -1.3 0.0 Osteopenia World Health Organization criteria for BMD impression classify patients as: Normal (T-score at or above -1.0), Osteopenia (T-score between -1.0 and -2.5), or Osteoporosis (T-score at or below -2.5). 10-year Fracture Risk: FRAX not reported because: Prior hip or vertebral fracture Clinical Information Provided by Patient: Have had a previous hip or vertebral fracture Has had a low trauma fracture Has used the following medications: Vitamin D Has the following medical conditions: Cancer Patient maximum height was 72 No regular weight bearing exercise Drinks caffeinated beverages Impression: The patient has low bone mass, based on the Total Spine T-score. The patient has risk factors, including: previous fracture. Discussion: INCREASED RISK OF FRACTURE DUE TO HISTORY OF LOW TRAUMA FRACTURE. The patient's previous fracture puts the patient at high risk of a future fracture. In untreated patients, the risk of osteoporotic fracture increases approximately two-fold for each 1.0 SD decrease in T-score. Low bone density is not the only risk factor for fracture; also consider factors such as patient's age, frailty or poor health, risk of falling, risk of injury, previous osteoporotic fracture, family history of osteoporosis, cigarette smoking, low body weight, etc. Not everyone with a low trauma fracture has osteoporosis; osteomalacia and other metabolic bone disorders should also be considered. Patients who have osteoporosis should be evaluated for specific diseases and conditions (secondary causes) that may cause or contribute to bone loss and fracture risk. National Osteoporosis Foundation (NOF) recommends pharmacologic intervention for patients with a prior low trauma hip or vertebral fracture regardless of BMD T-score. The patient should follow a healthful lifestyle (good nutrition with adequate calcium and vitamin D, and appropriate weight-bearing exercise). Follow-Up: Consider a repeat BMD and Vertebral Fracture Assessment (VFA) exam in 2 years or sooner if medically necessary, to reassess this patient's status.
== END 2022-08-13 12:10 | disposition home or self-care (01) ==
LOC: CHSIMG 12:10
PROVIDERS: PCP Internal Medicine; Visit Provider Internal Medicine
DX: M81.0 Age-related osteoporosis without current pathological fracture (principal); M85.89 Other specified disorders of bone density and structure, multiple sites
CPT/HCPCS: 77080

== ENCOUNTER 2022-08-27 09:14 | Outpatient (CLI) | payer MEDICARE, SELFPAY ==
--- NOTE | ~2022-08-27 | XR_ITS ---
Thoracic spine: Clinical Indication: Pain COMPARISON: 06/25/2022 AP and lateral views were performed. No fracture is seen. Compression fractures in the midthoracic spine are similar to prior exam, probab ly involving T5, T6,, T7, and T8. Paravertebral soft tissues appear normal. Impression: Compression fractures of T5, T6, T7, and T8, probably without significant change from prior exam. T2 compression fracture seen on prior MR dated 06/05/2022 is poorly seen on plain radiographs. Reviewed, dictated and finalized at location . IZATION REVIEW SPECIALIST Impression: Compression fractures of T5, T6, T7, and T8, probably without significant gastelum e from prior exam. T2 compression fracture seen on prior MR dated 06/05/2022 is poorly seen on maria g in radiographs.
== END 2022-08-27 09:15 | disposition home or self-care (01) ==
PROVIDERS: PCP Internal Medicine; Visit Provider Neurological Surgery
DX: S22.050A Wedge compression fracture of T5-T6 vertebra, initial encounter for closed fracture (principal); S22.060A Wedge compression fracture of T7-T8 vertebra, initial encounter for closed fracture; X58.XXXA Exposure to other specified factors, initial encounter
CPT/HCPCS: 72070

== ENCOUNTER 2022-09-16 08:25 | Inpatient (IN) | payer MEDICARE, SELFPAY ==
[2022-09-16] VITALS (12 sets, daily range): BP systolic 108–174; BP diastolic 64–101; PULSE 77–120; RESP 18–24; TEMP 36.7–37.6; O2SAT 96–97; BMI 30.2
--- NOTE | ~2022-09-16 | XR_ITS ---
Portable chest x-ray Comparison: 01/29/2022 Clinical History: Dyspnea Findings: There is mild haziness in the left perihilar region and lung bases, similar to prior exam. Cardiomediastinal silhouette is stable. Bones and soft tissues are unremarkable. Impression: Minimal chronic haziness left perihilar region lung bases. Correlate for chronic interstitial disease versus possibly mild pulmonary edema. CT can be considered for further evaluation as indicated. Reviewed, dictated and finalized at [facility]. 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 Correlate for chroni c interstitial disease versus possibly mild pulmonary edema. CT can be consider ed for further evaluation as indicated.
--- NOTE | 2022-09-16 08:32 | ED.SKABFB ---
HPI - Skin/Abscess/Foreign Bdy General Chief complaint: Unspecified Stated complaint: facial swelling, urinary incontinence Time Seen by Provider: 09/16/22 08:30 History of Present Illness HPI narrative: Pt presents with redness and swelling to left cheek and urinary frequency and incontinence. Facial symptoms started yesterday and swelling is worse this morning. Urinary frequency and incontinence has been going on for several days but is worse last few. Pt sees Dr Mckee and is on flomax for BPH. Pt denies fever or chills. Pt has some LE edema. Pt does not complain of CP or SOB. says he has a water pill but has not been taking it due to urinary frequency issues. Related Data Allergies Allergy/AdvReac Type Severity Reaction Status Date / Time No Known Allergies Allergy Verified 09/16/22 08:37 Review of Systems Review of Systems: All systems reviewed & are unremarkable except as noted in HPI and below PMFSH Past Medical History Medical History Atrial fibrillation Chronic low back pain without sciatica Chronic pain of right ankle CKD (chronic kidney disease) stage 3, GFR 30-59 ml/min Diastolic dysfunction Dyslipidemia Essential (primary) hypertension History of prostate cancer Mass of left lung Prostate cancer (~2015) Right retinal detachment 03/2016 Unspecified osteoarthritis, unspecified site Vitamin D deficiency Surgical History Surgical History History of back surgery (~2010) Sacrolplasty L3-5 Lumbar Decompression L4-5 w/ Fusion History of bilateral knee replacement (~1999) 1999, 2004 S/P TURP 10/2015 Family History Family History Sibling Hypertension Father Family history of lung cancer, Onset Age: 68 Mother Family history of dementia, Onset Age: 93 Mother Hypertension Familial Alzheimer's disease of late onset Social History Social History Smoking status: Former smoker Tobacco type: cigars Second hand tobacco smoke exposure: No Smoking end date: 07/19/01 Alcohol intake: former Alcohol use details: quit drinking alcohol in 2010 Substance use: never Substance use type: does not use Lack of Transportation: No Lack of Food: Never True Current Housing: I Have Housing Concerned About Future Housing: No Difficulty Paying Gas/Electric Bills: No Difficulty Paying for Meds: No Currently Unemployed: No Education: High School Diploma/GED Living arrangements: with family Occupation/Education: retired Gender identity (if verbalized by the patient): Male Sexual Orientation (if Verbalized by the Patient): Straight or Heterosexual Spiritual care concerns: No Agree to blood products: Yes Exam Const: General: healthy appearing Nutritional Appearance: well nourished Orientation/consciousness: patient oriented x3 Limitations: no limitations HENMT: Other: erythema with some yellow crusting and swelling to left cheek no abscess. Eyes: Conjunctivae: conjunctivae normal Pupils: Equal, round and reactive pupils present EOM: EOMs intact bilaterally Neck: Neck: normal visual inspection Chest: Chest palpation & inspection: normal inspection of the chest Resp: Effort & Inspection: labored Auscultation: crackles and wheezes Cardio: Rate: regular rate Other: irregular rhythm hx of a fib : General: Yes bladder normal to palpation Skin: Wounds: wounds noted Other: see HEENT Neuro: General: patient oriented x3, moves all extremities, no meningeal signs and no focal motor deficits Speech: normal speech Extrem: General: edema bilateral Psych: Mental Status: mental status grossly normal Affect: normal affect Attitude: cooperative Course Vital Signs Vital signs: Vital Signs Temperature
--- NOTE | 2022-09-16 08:38 | ECG_ITS ---
Measurements Intervals [place] Rate: 116 P: NH: 0 QRS: 91 QRSD: 99 T: 35 QT: 343 QTc: 477 Interpretive Statements ATRIAL FIBRILLATION WITH RAPID VENTRICULAR RESPONSE RIGHT AXIS DEVIATION DELAYED PRECORDIAL R/S TRANSITION BORDERLINE ST-T WAVE ABNORMALITY- INFERIOR LEADS ABNORMAL ECG COMPARED TO ECG 01/29/2022 10:51:07 HEART RATE HAS INCREASED Electronically Signed On 09-16-2022 9:17:13 POULTRY DRESSER by Sony Vides D.O.
[2022-09-16 09:10] LABS: Appearance Urine Clear (Clear); Bilirubin Urine Negative (Negative); Blood Urine 2+ (Negative); Color Urine Light Yellow (Yellow); Glucose Urine UA Negative (Negative); Hematocrit 34.3 % (37.0-46.0); Hemoglobin 12.1 g/dL (12.4-15.3); Ketones Urine 1+ (Negative); Leukocyte Esterase Ur Negative LEU/UL (Negative); Mean Corpuscular HGB Conc 35.3 g/dL (32.0-36.0); Mean Corpuscular Hemoglobin 31.3 pg (27.0-31.0); Mean Corpuscular Volume 88.6 fL (78.0-102.0); Nitrate Urine Negative (Negative); Platelet Count Result 211 K/mm3 (150-420); Protein Urine Trace (Negative); Red Blood Count 3.87 M/mm3 (4.70-6.10); Red Cell Distribution Width 13.1 % (11.6-14.4); Specific Grav Ur 1.015 (1.010-1.020); Urobilinogen Urine 0.2 mg/dL (0.2-1.0)
[2022-09-16 09:13] LABS: White Blood Count 24.8 K/mm3 (4.8-10.8)
[2022-09-16 09:20] LABS: Band Neutrophils Percent 3 % (0-6); Lymphocytes Absolute Manual 0.24 K/mm3 (1.1-4.5); Lymphocytes Percent Manual 1 % (18-44); Monocytes Absolute Manual 0.99 K/mm3 (0.1-0.90); Monocytes Percent Manual 4 % (3-9); Neutrophils Absolute Manual 23.56 K/mm3 (1.3-6.7); Neutrophils Percent Manual 92 % (46-73); Total Cells Counted 100
[2022-09-16 09:21] LABS: Platelet Estimate Adequate (Adequate)
[2022-09-16 09:24] LABS: Add Urine Microscopic? YES; Bacteria Urine Noted /hpf; INR 1.7; Partial Thromboplastin Time 39.1 SEC (23.90-30.70); Prothrombin Time 17.4 Seconds (9.50-12.10); WBC Urine None seen /hpf (0-3)
[2022-09-16 09:34] LABS: NT Pro B Type Natriuretic Pept 6039 pg/mL (0-450)
[2022-09-16 09:37] LABS: Alanine Aminotransferase 20 U/L (16-63); Albumin Level 3.4 g/dL (3.4-5.0); Alkaline Phosphatase 91 U/L (46-116); Anion Gap 8 mmol/L (8-16); Aspartate Amino Transferase 25 U/L (15-37); Bilirubin,Total 1.2 mg/dL (0.00-1.00); Blood Urea Nitrogen 15 mg/dL (7-18); Carbon Dioxide 28 mmol/L (21-32); Chloride 83 mmol/L (98-108); Estimated CRCL calculation 49 ml/min; Estimated Glomerular Filt Rate 56; Glucose 108 mg/dL (70-99); Osmolality Calculated 249 mOsm/kg (285-295); Potassium 3.3 mmol/L (3.5-5.1); Total Protein 8.7 g/dL (6.4-8.2)
[2022-09-16 09:40] LABS: Sodium 119 mmol/L (136-145)
[2022-09-16] MEDS: carvediloL 12.5 MG TABLET 25 MG PO ×2 (11:05→20:40)
[2022-09-16] MEDS: hydroCHLOROthiazide 25 MG TABLET PO (11:05)
[2022-09-16] MEDS: lisinopriL 20 MG TABLET PO (11:05)
[2022-09-16] MEDS: SODIUM CHLORIDE 0.9% IV 1,000 ML 75 ML IV CONT (11:06)
[2022-09-16] MEDS: FUROSEMIDE INJ 40 MG/4 ML VIAL 20 MG IV PUSH (11:38)
--- NOTE | 2022-09-16 11:42 | PHAR ---
Spoke w/nurse Nickerson and Dr. Sheldon's office. She confirmed patient's most recent warfarin regimen as alternating 4mg with 3mg every other day.
--- NOTE | 2022-09-16 13:41 | ADMGEN ---
1030 This patient, Bhupendra Vila, was admitted to 2nd Floor Room 208-1. with cellulitis to l cheek and chf. Patient/family oriented to hospital policies and general routines including ID bracelet, bed and alarms, visiting hours, pain management, procedures, bathroom and other care routines, personal items, smoking policy, room service/diet, and visiting hours. Information on how to activate the Rapid Response Team has been discussed. Patient/Family are encouraged to report perceived risks to care and to ask questions if they do not understand what they are told or what they should do. pt is alert and orient x's 4. lungs are diminished does have audible wheezes with any exertion. denies any pain or sob. room air spo2 is 97%. l cheek is bright red and warm to touch. swollen. has like an abrasion area and sm scabs. does have sm amt of oozing. clear yellow. clamins r hand there was a scabbed area he had there and picked scab away several days ago and lots of pus came out. encouraged good hand hygiene and not to pick at areas. has edema in lawrence legs up into thighs.
--- NOTE | 2022-09-16 13:48 | PC.NURSE ---
unable to void. just scant amt of dribbles. c/o he feels like he can but can not. attempted to put adorno in with no luck. barely passes urinary meatus and hits stricture and unable to pass forthor. penis repositioned and angle changed and still no luck with passing it any furthor. bladder scan done and 576ml in bladder. txt out to mary penn.
--- NOTE | 2022-09-16 14:13 | PC.NURSE ---
did void approx 50ml urine in urinal. comes out in sm drizzles and drips. incont in brief. brief is wet but not soaked. cont to get wheezing with any exsertion. spo96% on room air and denies sob. can lie in bed almost flat. will not leave head up.
[2022-09-16] MEDS: WARFARIN (*PBKC) 2 MG TABLET 4 MG PO (16:59)
--- NOTE | 2022-09-16 17:21 | PC.NURSE ---
incont of urine. diaper soaked. pericare given and immediately started to dribble again. did void a scant amt 25ml. recleaned. trying a condom cath at this time. does not like dinner.
--- NOTE | 2022-09-16 19:30 | PC.NURSE ---
condom cath fell off brief soaked. cleansed up.
[2022-09-16] MEDS: SIMVASTATIN 10 MG TABLET 40 MG PO (20:40)
[2022-09-17] VITALS (9 sets, daily range): BP systolic 95–131; BP diastolic 59–80; PULSE 77–96; RESP 18–22; TEMP 36.3–36.8; O2SAT 93–97
[2022-09-17] MEDS: SODIUM CHLORIDE 0.9% IV 1,000 ML 75 ML IV CONT ×2 (02:34→16:27)
[2022-09-17 07:59] LABS: Hematocrit 28.8 % (37.0-46.0); Hemoglobin 10.1 g/dL (12.4-15.3); Mean Corpuscular HGB Conc 35.1 g/dL (32.0-36.0); Mean Corpuscular Hemoglobin 31.2 pg (27.0-31.0); Mean Corpuscular Volume 88.9 fL (78.0-102.0); Mean Platelet Volume 8.6 fl (8.7-11.0); Platelet Count Result 151 K/mm3 (150-420); Red Blood Count 3.24 M/mm3 (4.70-6.10); Red Cell Distribution Width 13.3 % (11.6-14.4); White Blood Count 18.6 K/mm3 (4.8-10.8)
[2022-09-17 08:14] LABS: INR 1.9; Prothrombin Time 19.3 Seconds (9.50-12.10)
[2022-09-17 08:15] LABS: Anion Gap 6 mmol/L (8-16); Blood Urea Nitrogen 17 mg/dL (7-18); Calcium 7.8 mg/dL (8.5-10.1); Carbon Dioxide 30 mmol/L (21-32); Chloride 87 mmol/L (98-108); Estimated CRCL calculation 47 ml/min; Estimated Glomerular Filt Rate 54; Glucose 90 mg/dL (70-99); Osmolality Calculated 257 mOsm/kg (285-295); Sodium 123 mmol/L (136-145)
[2022-09-17 08:17] LABS: Potassium 2.5 mmol/L (3.5-5.1)
--- NOTE | 2022-09-17 08:17 | PM.IMHP ---
H&P: HPI History of Present Illness Date/Time: 09/17/22 08:17 Chief Complaint: Frequent urination, Weakness Narrative: this 86-year-old male who presents to the emergency room with facial swelling and complaining of urination frequency patient has an extensive past medical history of some bladder cancer as well as congestive heart failure, atrial fibrillation, hypertension, back pain, prostate cancer, mass and lung. Patient takes medication but at his leisure patient has not been taking his Lasix as it makes him urinate too much per patient so he has been holding off on that patient INR is not therapeutic not sure if he has continued to take this medication patient is found to be hyponatremic I have placed patient on a oral fluid restriction and slowly given him some IV fluids as well as some IV Lasix patient denies any shortness of breath although he at times he seems to be breathing hard. Patient denies any pain he has been worried about his face noticed that he did have a sore although he said he was unable to see it. 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 Review of Systems Review of Systems: Facial cellulitis , Frequent urination All systems reviewed & are unremarkable except as noted in HPI and below PMFSH Past Medical History Medical History (Updated 09/17/22 @ 11:50 by Ga Catherine NP) Atrial fibrillation Chronic low back pain without sciatica Chronic pain of right ankle CKD (chronic kidney disease) stage 3, GFR 30-59 ml/min Diastolic dysfunction Dyslipidemia Essential (primary) hypertension History of prostate cancer Hypokalemia Mass of left lung Prostate cancer (~2015) Right retinal detachment 03/2016 Unspecified osteoarthritis, unspecified site Vitamin D deficiency Surgical History Surgical History History of back surgery (~2010) Sacrolplasty L3-5 Lumbar Decompression L4-5 w/ Fusion History of bilateral knee replacement (~1999) 1999, 2004 S/P TURP 10/2015 Family History Family History Sibling Hypertension Father Family history of lung cancer, Onset Age: 68 Mother Family history of dementia, Onset Age: 93 Mother Hypertension Familial Alzheimer's disease of late onset Social History Social History Smoking packs per day: 1 Smoking cigarettes per day: 20.0 Years smoked: 35 Smoking pack-years: 35.00 Smoking status: Former smoker Tobacco type: cigarettes and cigars Second hand tobacco smoke exposure: No Smoking end date: 01/16/03 Additional smoking assessment comments: STOPPED CIGARS 2011 Alcohol intake: never Alcohol use details: quit drinking alcohol in 2010 Substance use: never Substance use type: does not use Lack of Transportation: No Lack of Food: Never True Current Housing: I Have Housing Concerned About Future Housing: No Difficulty Paying Gas/Electric Bills: No Difficulty Paying for Meds: No Currently Unemployed: No Education: Decline to Answer Difficulty w/ Childcare or Family Care: No Living arrangements: with family Additional living arrangements comments: Occupation/Education: retired Gender identity (if verbalized by the patient): Male Sexual Orientation (if Verbalized by the Patient): Straight or Heterosexual Spiritual care concerns: No Agree to blood products: Yes Meds Home Medications and Allergies Home Medications Medication Instructions Recorded Confirmed Type carvedilol 25 mg tablet 25 mg PO Q12H #180 tabs 03/20/22 10/02/22 Rx simvastatin 40 mg tablet 40 mg PO QHS #90 tabs 07/15/22 0
[2022-09-17] MEDS: KCL 20 MEQ/SW 100 ML 100 ML 50 MEQ IVPB ×2 (08:48→10:27)
[2022-09-17] MEDS: FUROSEMIDE INJ 20 MG/2 ML VIAL IV PUSH (08:50)
[2022-09-17] MEDS: lisinopriL 20 MG TABLET PO (08:51)
[2022-09-17] MEDS: carvediloL 12.5 MG TABLET 25 MG PO ×2 (08:51→20:32)
[2022-09-17] MEDS: hydroCHLOROthiazide 25 MG TABLET PO (08:51)
[2022-09-17] MEDS: WARFARIN (*PBKC) 1 MG TABLET 3 MG PO (17:40)
[2022-09-17] MEDS: SIMVASTATIN 10 MG TABLET 40 MG PO (20:33)
[2022-09-18] VITALS (7 sets, daily range): BP systolic 156–178; BP diastolic 83–96; PULSE 84–96; RESP 18–20; TEMP 35.6–36.2; O2SAT 93–96
[2022-09-18] MEDS: SODIUM CHLORIDE 0.9% IV 1,000 ML 75 ML IV CONT (07:03)
[2022-09-18] MEDS: FUROSEMIDE INJ 20 MG/2 ML VIAL IV PUSH ×2 (07:49→09:05)
[2022-09-18] MEDS: carvediloL 12.5 MG TABLET 25 MG PO ×2 (07:49→20:41)
[2022-09-18] MEDS: hydroCHLOROthiazide 25 MG TABLET PO (07:50)
[2022-09-18] MEDS: lisinopriL 20 MG TABLET PO (07:50)
[2022-09-18 09:26] LABS: Basophils Absolute Auto 0.02 K/mm3 (0.00-0.10); Basophils Percent Auto 0.1 % (0.0-1.0); Eosinophils Absolute Auto 0.04 K/mm3 (0.02-0.50); Eosinophils Percent Auto 0.3 % (1.0-6.0); Hematocrit 30.6 % (37.0-46.0); Hemoglobin 10.7 g/dL (12.4-15.3); Immature Granulocyte Percent A 0.7 % (0.0-0.0); Mean Corpuscular Hemoglobin 31.6 pg (27.0-31.0); Mean Corpuscular Volume 90.3 fL (78.0-102.0); Mean Platelet Volume 8.8 fl (8.7-11.0); Monocytes Absolute Auto 0.44 K/mm3 (0.10-0.90); Monocytes Percent Auto 3.3 % (2.0-11.0); Neutrophils Absolute Auto 12.4 K/mm3 (1.7-7.2); Neutrophils Percent Auto 92.6 % (50.0-70.0); Platelet Count Result 171 K/mm3 (150-420); Red Blood Count 3.39 M/mm3 (4.70-6.10); Red Cell Distribution Width 13.4 % (11.6-14.4); White Blood Count 13.4 K/mm3 (4.8-10.8)
[2022-09-18 09:46] LABS: Alanine Aminotransferase 29 U/L (16-63); Albumin Level 2.2 g/dL (3.4-5.0); Alkaline Phosphatase 74 U/L (46-116); Anion Gap 5 mmol/L (8-16); Aspartate Amino Transferase 37 U/L (15-37); Bilirubin,Total 0.6 mg/dL (0.00-1.00); Blood Urea Nitrogen 20 mg/dL (7-18); Calcium 7.9 mg/dL (8.5-10.1); Carbon Dioxide 32 mmol/L (21-32); Chloride 90 mmol/L (98-108); Estimated CRCL calculation 44 ml/min; Estimated Glomerular Filt Rate 50; Glucose 153 mg/dL (70-99); Osmolality Calculated 269 mOsm/kg (285-295); Sodium 127 mmol/L (136-145); Total Protein 6.5 g/dL (6.4-8.2)
[2022-09-18 09:52] LABS: Potassium 2.4 mmol/L (3.5-5.1)
[2022-09-18] MEDS: KCL 20 MEQ/SW 100 ML 100 ML 50 MEQ IVPB (10:22)
--- NOTE | 2022-09-18 11:06 | PM.IMPN ---
Progress Note: A&P Assessment and Plan (1) Cellulitis and abscess of face: Code(s): L03.211 - Cellulitis of face; L02.01 - Cutaneous abscess of face Status: Acute Assessment and Plan: discussed case with Infectious Disease pharmacist, Dr. Troy, and will discontinue the Zosyn and start ceftriaxone 2 g IV Q 24 and doxycycline 100 mg orally b.i.d. to cover risk of MRSA Monitor progression or improvement Monitor vital signs (2) CHF (congestive heart failure): Code(s): I50.9 - Heart failure, unspecified Status: Acute Assessment and Plan: Stop IV normal saline IV Lasix 40 mg daily Daily weights Monitor for worsening (3) Acute hyponatremia: Code(s): E87.1 - Hypo-osmolality and hyponatremia Status: Acute Assessment and Plan: discontinue IV fluids Oral fluid restriction 1200 mL daily Discontinue hydrochlorothiazide Lasix 40 mg IV daily Monitor radio repairer intake and output 119>123>127 (4) Back pain: Code(s): M54.9 - Dorsalgia, unspecified Status: Acute Assessment and Plan: p.r.n. pain medication (5) HTN (hypertension): Code(s): I10 - Essential (primary) hypertension Status: Acute Assessment and Plan: monitor vitals Continue home carvedilol and lisinopril (6) HLD (hyperlipidemia): Code(s): E78.5 - Hyperlipidemia, unspecified Status: Acute Assessment and Plan: stable continue home meds (7) Atrial fibrillation: Code(s): I48.91 - Unspecified atrial fibrillation Status: Chronic Assessment and Plan: continue beta-zahra Continue Coumadin Monitor PT INR (8) Hypokalemia: Code(s): E87.6 - Hypokalemia Status: Acute Assessment and Plan: potassium 2.5-down to 2.4 today potassium rider 20 mEq x1 Potassium 40 mEq p.o. q.4 hours x2 monitor hall monitor vital signs Subjective Date/time seen: 09/18/22 0815 patient is alert And oriented x4 and appears in no acute distress Review of Systems Review of Systems: All systems reviewed & are unremarkable except as noted in HPI and below Constitutional: Constitutional: Reports as per HPI and Reports no additional constitutional complaints ENT: Reports system reviewed and no additional complaints, except as documented Cardiovascular: Cardiovascular: Reports leg edema Comments: patient reports that his legs are always swollen and have been for many years Respiratory: Respiratory: Reports no additional respiratory complaints Gastrointestinal: Gastrointestinal: Reports as per HPI and Reports no additional gastrointestinal complaints Genitourinary: Genitourinary: Reports urinary frequency and Reports urinary incontinence Musculoskeletal: Musculoskeletal: Reports no additional musculoskeletal complaints Neurologic: Reports system reviewed and no additional complaints, except as documented Psychiatric: Psychiatric: Reports no additional psychiatric complaints Exam Const: General: comfortable and no acute distress Other: patient is alert and oriented x4 and appears in no acute distress however, threatening to leave AMA so he can go home and eat a bowl of chili. States he was told he could leave today. Eyes: General: appearance normal, both eyes and all related structures Sclera: sclerae normal Pupils: Equal, round and reactive pupils present EOM: EOMs intact bilaterally Neck: Neck: supple Resp: Effort & Inspection: normal respiratory effort Auscultation: crackles bilateral at the base Other: Patient appears in no acute respiratory distress. Able to speak in complete sentences without difficulty. No use of accessory muscles appreciated. However, patient does become mildly tachypneic with conversation. Cardio: Rate: regular rate Rhythm: regular rhythm Other: Heart tones reveal normal S1-S2. No murmur, rub, gallop noted. GI: GI Palp: Yes Soft to palpation Other: Abdomen soft,
[2022-09-18] MEDS: DOXYCYCLINE HYCLATE 100 MG TABLET PO ×2 (11:59→20:41)
[2022-09-18] MEDS: POTASSIUM CHLORIDE 20 MEQ TABLET 40 MEQ PO ×2 (11:59→17:30)
[2022-09-18] MEDS: WARFARIN (*PBKC) 2 MG TABLET 4 MG PO (17:30)
[2022-09-18] MEDS: SIMVASTATIN 10 MG TABLET 40 MG PO (20:41)
[2022-09-19] VITALS (9 sets, daily range): BP systolic 126–182; BP diastolic 79–108; PULSE 76–98; RESP 18–20; TEMP 36–36.6; O2SAT 94–98
[2022-09-19 04:45] LABS: Basophils Absolute Auto 0.01 K/mm3 (0.00-0.10); Basophils Percent Auto 0.1 % (0.0-1.0); Eosinophils Absolute Auto 0.09 K/mm3 (0.02-0.50); Hematocrit 31.5 % (37.0-46.0); Hemoglobin 10.9 g/dL (12.4-15.3); Immature Granulocyte Absolute 0.05 K/mm3 (0.00-0.00); Immature Granulocyte Percent A 0.6 % (0.0-0.0); Lymphocytes Percent Auto 6.7 % (18.0-42.0); Mean Corpuscular HGB Conc 34.6 g/dL (32.0-36.0); Mean Corpuscular Volume 89.5 fL (78.0-102.0); Mean Platelet Volume 8.6 fl (8.7-11.0); Monocytes Absolute Auto 0.75 K/mm3 (0.10-0.90); Monocytes Percent Auto 8.4 % (2.0-11.0); Neutrophils Absolute Auto 7.5 K/mm3 (1.7-7.2); Neutrophils Percent Auto 83.2 % (50.0-70.0); Platelet Count Result 183 K/mm3 (150-420); Red Blood Count 3.52 M/mm3 (4.70-6.10); Red Cell Distribution Width 13.3 % (11.6-14.4)
[2022-09-19 04:57] LABS: Prothrombin Time 20.7 Seconds (9.50-12.10)
[2022-09-19] MEDS: carvediloL 12.5 MG TABLET 25 MG PO ×2 (08:16→20:26)
[2022-09-19 08:17] LABS: Alanine Aminotransferase 58 U/L (16-63); Albumin Level 2.5 g/dL (3.4-5.0); Alkaline Phosphatase 78 U/L (46-116); Anion Gap 7 mmol/L (8-16); Aspartate Amino Transferase 56 U/L (15-37); Bilirubin,Total 0.4 mg/dL (0.00-1.00); Blood Urea Nitrogen 18 mg/dL (7-18); Carbon Dioxide 32 mmol/L (21-32); Chloride 89 mmol/L (98-108); Estimated CRCL calculation 54 ml/min; Estimated Glomerular Filt Rate > 60; Glucose 88 mg/dL (70-99); Osmolality Calculated 266 mOsm/kg (285-295); Potassium 2.9 mmol/L (3.5-5.1); Sodium 128 mmol/L (136-145); Total Protein 6.4 g/dL (6.4-8.2)
[2022-09-19] MEDS: lisinopriL 20 MG TABLET PO (08:17)
[2022-09-19] MEDS: DOXYCYCLINE HYCLATE 100 MG TABLET PO ×2 (08:17→20:34)
[2022-09-19] MEDS: FUROSEMIDE INJ 40 MG/4 ML VIAL IV PUSH (08:52)
[2022-09-19] MEDS: POTASSIUM CHLORIDE 20 MEQ TABLET 40 MEQ PO ×4 (08:53→20:31)
--- NOTE | 2022-09-19 09:07 | PC.NURSE ---
Patient IV out of hand. New IV site started with attempts x3. Patient tolerated fairly.
--- NOTE | 2022-09-19 09:50 | PM.IMPN ---
Progress Note: A&P Assessment and Plan (1) Cellulitis and abscess of face: Code(s): L03.211 - Cellulitis of face; L02.01 - Cutaneous abscess of face Status: Acute Assessment and Plan: discussed case with Infectious Disease pharmacist, Dr. Troy, and will discontinue the Zosyn and start ceftriaxone 2 g IV Q 24 and doxycycline 100 mg orally b.i.d. to cover risk of MRSA Monitor progression or improvement. Has reduced erythema and edema this morning compared to yesterday. Patient states it feels much better and no longer itches. Monitor vital signs (2) CHF (congestive heart failure): Code(s): I50.9 - Heart failure, unspecified Status: Acute Assessment and Plan: Stop IV normal saline IV Lasix 40 mg daily Daily weights Monitor for worsening (3) Acute hyponatremia: Code(s): E87.1 - Hypo-osmolality and hyponatremia Status: Acute Assessment and Plan: discontinue IV fluids Oral fluid restriction 1200 mL daily Discontinue hydrochlorothiazide Lasix 40 mg IV daily Monitor mail handler sorter intake and output 119>123>127>128 (4) Back pain: Code(s): M54.9 - Dorsalgia, unspecified Status: Acute Assessment and Plan: p.r.n. pain medication (5) HTN (hypertension): Code(s): I10 - Essential (primary) hypertension Status: Acute Assessment and Plan: monitor vitals Continue home carvedilol and lisinopril (6) HLD (hyperlipidemia): Code(s): E78.5 - Hyperlipidemia, unspecified Status: Acute Assessment and Plan: stable continue home meds (7) Atrial fibrillation: Code(s): I48.91 - Unspecified atrial fibrillation Status: Chronic Assessment and Plan: continue beta-zahra Continue Coumadin Monitor PT INR (8) Hypokalemia: Code(s): E87.6 - Hypokalemia Status: Acute Assessment and Plan: potassium 2.5>2.4>2.9 Potassium 40 mEq p.o. q.4 hours x4 Monitor BMP monitor panel monitor vital signs Subjective Date/time seen: 09/19/22 0800 Review of Systems Constitutional: Comments: Patient is alert and oriented x4 and appears in no acute distress. Cardiovascular: Cardiovascular: Reports leg edema Respiratory: Respiratory: Reports wheezing Gastrointestinal: Gastrointestinal: Reports no additional gastrointestinal complaints Genitourinary: Genitourinary: Reports urinary incontinence Neurologic: Reports system reviewed and no additional complaints, except as documented Psychiatric: Psychiatric: Reports no additional psychiatric complaints Exam Const: General: comfortable and no acute distress HENMT: Mouth: Yes moist mucous membranes Eyes: General: appearance normal, both eyes and all related structures Sclera: sclerae normal Pupils: Equal, round and reactive pupils present EOM: EOMs intact bilaterally Neck: Neck: supple and no JVD Resp: Effort & Inspection: normal respiratory effort Auscultation: wheezes lower bilaterally Other: Pt appears in no acute respiratory distress. Able to speak in complete sentences without difficulty. No use of accessory muscles appreciated. Cardio: Rate: regular rate Rhythm: regular rhythm Other: S1-S2 heard. No breast, gallop, murmur appreciated GI: Other: abdomen is soft, nontender, no masses or hernias noted. Bowel sounds present x4 quadrants. : Other: Pt has chronic urinary incontinence. Staff report that they are unable to pass even a pediatric catheter or coude past the head of the penis. Pt states that has been ongoing problem. Has a f/u appointment with urology 09/30/2022 and he believes they are planning to do a cystoscopy then. Skin: Rashes: rashes noted Other: Left-sided face is erythematous, mildly edematous with yellow crusting to the center but no abscess appreciated. Erythema is reduced from yesterday. Neuro: Speech: normal speech Extrem: General: pedal edema ( 2+ pitting pedal edema
[2022-09-19] MEDS: WARFARIN (*PBKC) 1 MG TABLET 3 MG PO (17:06)
--- NOTE | 2022-09-19 17:52 | PC.NURSE ---
Patient currently over on fluid restriction today, due to difficulty swallowing PO potassium. BARGE HAND, Jesica, aware and told policy writer typist not to be concerned due to patient needing K+ and patient's inability to tolerate IV K+.
[2022-09-19] MEDS: SIMVASTATIN 10 MG TABLET 40 MG PO (20:26)
[2022-09-20] VITALS (8 sets, daily range): BP systolic 160–189; BP diastolic 97–103; PULSE 77–94; RESP 18–20; TEMP 36.3–36.5; O2SAT 95–97
[2022-09-20 05:30] LABS: Basophils Absolute Auto 0.01 K/mm3 (0.00-0.10); Basophils Percent Auto 0.1 % (0.0-1.0); Eosinophils Absolute Auto 0.07 K/mm3 (0.02-0.50); Hematocrit 32.6 % (37.0-46.0); Hemoglobin 11.4 g/dL (12.4-15.3); Immature Granulocyte Absolute 0.05 K/mm3 (0.00-0.00); Immature Granulocyte Percent A 0.7 % (0.0-0.0); Lymphocytes Absolute Auto 0.68 K/mm3 (1.10-4.50); Mean Corpuscular Hemoglobin 31.8 pg (27.0-31.0); Mean Corpuscular Volume 90.8 fL (78.0-102.0); Mean Platelet Volume 8.8 fl (8.7-11.0); Monocytes Absolute Auto 0.66 K/mm3 (0.10-0.90); Monocytes Percent Auto 9.7 % (2.0-11.0); Neutrophils Absolute Auto 5.3 K/mm3 (1.7-7.2); Neutrophils Percent Auto 78.5 % (50.0-70.0); Platelet Count Result 213 K/mm3 (150-420); Red Blood Count 3.59 M/mm3 (4.70-6.10); Red Cell Distribution Width 13.4 % (11.6-14.4); White Blood Count 6.8 K/mm3 (4.8-10.8)
[2022-09-20 05:42] LABS: Prothrombin Time 20.3 Seconds (9.50-12.10)
[2022-09-20 05:45] LABS: Alanine Aminotransferase 55 U/L (16-63); Albumin Level 2.4 g/dL (3.4-5.0); Alkaline Phosphatase 79 U/L (46-116); Anion Gap 6 mmol/L (8-16); Aspartate Amino Transferase 45 U/L (15-37); Bilirubin,Total 0.4 mg/dL (0.00-1.00); Blood Urea Nitrogen 17 mg/dL (7-18); Calcium 8.6 mg/dL (8.5-10.1); Carbon Dioxide 31 mmol/L (21-32); Chloride 92 mmol/L (98-108); Estimated CRCL calculation 60 ml/min; Estimated Glomerular Filt Rate > 60; Glucose 94 mg/dL (70-99); Osmolality Calculated 269 mOsm/kg (285-295); Potassium 3.7 mmol/L (3.5-5.1); Sodium 129 mmol/L (136-145); Total Protein 7.1 g/dL (6.4-8.2)
[2022-09-20] MEDS: FUROSEMIDE INJ 40 MG/4 ML VIAL IV PUSH (08:17)
[2022-09-20] MEDS: hydrALAZINE HCL 20 MG/ML VIAL 5 MG IV PUSH ×2 (08:18→16:33)
[2022-09-20] MEDS: carvediloL 12.5 MG TABLET 25 MG PO ×2 (08:20→20:25)
[2022-09-20] MEDS: DOXYCYCLINE HYCLATE 100 MG TABLET PO ×2 (08:21→20:25)
[2022-09-20] MEDS: lisinopriL 20 MG TABLET PO (08:21)
--- NOTE | 2022-09-20 09:06 | PC.NURSE ---
PRN hydralazine effective. BP 92/57.
--- NOTE | 2022-09-20 10:19 | WPDPN ---
Progress Note: A&P Assessment and Plan (1) Cellulitis and abscess of face: Code(s): L03.211 - Cellulitis of face; L02.01 - Cutaneous abscess of face Status: Acute Assessment and Plan: discontinue the Zosyn and start ceftriaxone 2 g IV Q 24 and doxycycline 100 mg orally b.i.d. to cover risk of MRSA WBC wnl (2) CHF (congestive heart failure): Code(s): I50.9 - Heart failure, unspecified Status: Acute Assessment and Plan: IV Lasix 40 mg daily Daily weights Monitor for worsening (3) Acute hyponatremia: Code(s): E87.1 - Hypo-osmolality and hyponatremia Status: Acute Assessment and Plan: Oral fluid restriction 1200 mL daily Discontinue hydrochlorothiazide Lasix 40 mg IV daily Monitor care trainer intake and output reviewed (4) Back pain: Code(s): M54.9 - Dorsalgia, unspecified Status: Acute Assessment and Plan: p.r.n. pain medication (5) HTN (hypertension): Code(s): I10 - Essential (primary) hypertension Status: Acute Assessment and Plan: monitor vitals Continue home carvedilol and lisinopril (6) HLD (hyperlipidemia): Code(s): E78.5 - Hyperlipidemia, unspecified Status: Acute Assessment and Plan: stable continue home meds (7) Atrial fibrillation: Code(s): I48.91 - Unspecified atrial fibrillation Status: Chronic Assessment and Plan: continue beta-zahra Continue Coumadin (8) Hypokalemia: Code(s): E87.6 - Hypokalemia Status: Acute Assessment and Plan: potassium 2.5>2.4>2.9>3.7 Potassium 40 mEq p.o. q.4 hours x4 Monitor BMP monitor cafeteria monitor vital signs Subjective Date/time seen: 09/20/22 10:19 Interval history: Patient has no complains at this time he is anxious to discharge. He denies any cp has chronic sob abd pain, dizziness, abd pain. Review of Systems Review of Systems: ros Exam Narrative: GENERAL:Well-appearing, well-nourished, and in no acute distress. HEAD:Normocephalic, atraumatic. EYES: PERRLA and EOMI. ENT: Nares clear, no rhinorrhea or epistaxis. Mucous membranes moist. CHEST: C coarse with some crackles to auscultation. No respiratory distress. HEART: Regular rate and rhythm. Normal peripheral pulses. ABDOMEN: Soft, nontender, distended, normal active bowel sounds. EXTREMITIES: Normal range of motion. 1+ edema. SKIN: Warm, dry, no rash. facial sore on the left cheek with erythema and some yellowish drainage NEURO: No focal deficits. Alert and oriented x3. Const: General: comfortable and no acute distress Other: patient is alert and oriented x4 and appears in no acute distress however, threatening to leave AMA so he can go home and eat a bowl of chili. States he was told he could leave today. HENMT: Mouth: Yes moist mucous membranes Eyes: General: appearance normal, both eyes and all related structures Sclera: sclerae normal Pupils: Equal, round and reactive pupils present EOM: EOMs intact bilaterally Neck: Neck: supple and no JVD Resp: Effort & Inspection: normal respiratory effort Auscultation: crackles bilateral at the base and wheezes lower bilaterally Other: Pt appears in no acute respiratory distress. Able to speak in complete sentences without difficulty. No use of accessory muscles appreciated. Cardio: Rate: regular rate Rhythm: regular rhythm Other: S1-S2 heard. No breast, gallop, murmur appreciated GI: Other: abdomen is soft, nontender, no masses or hernias noted. Bowel sounds present x4 quadrants. : Other: Pt has chronic urinary incontinence. Staff report that they are unable to pass even a pediatric catheter or coude past the head of the penis. Pt states that has been ongoing problem. Has a f/u appointment with urology 09/30/2022 and he believes they are planning to do a cystoscopy then. Skin: General skin exam: normal color, lesion ( Patient has erythe
[2022-09-20] MEDS: POTASSIUM CHLORIDE 20 MEQ TABLET 40 MEQ PO (11:25)
[2022-09-20] MEDS: WARFARIN (*PBKC) 2 MG TABLET 4 MG PO (16:37)
--- NOTE | 2022-09-20 17:35 | PC.NURSE ---
Patient's BP at 148/99, down from 189/102 an hour ago.
--- NOTE | 2022-09-20 18:03 | PC.NURSE ---
Patient told underwriter mortgage loan that he stopped taking his water pill at home because it makes him urinate all of the time. Patient also did not understand why everyone says to drink plenty of water and he shouldn't drink as much water. Density Control Puncher verbally educated patient about CHF and Lasix and also provided printed materials on CHF and Lasix. Patient was receptive to education.
[2022-09-20] MEDS: SIMVASTATIN 10 MG TABLET 40 MG PO (20:25)
[2022-09-21] VITALS: BP 132/90; PULSE 90; RESP 18; TEMP 36.4; O2SAT 97
[2022-09-21 05:24] LABS: Basophils Absolute Auto 0.02 K/mm3 (0.00-0.10); Basophils Percent Auto 0.3 % (0.0-1.0); Eosinophils Absolute Auto 0.09 K/mm3 (0.02-0.50); Eosinophils Percent Auto 1.4 % (1.0-6.0); Hematocrit 34.5 % (37.0-46.0); Hemoglobin 11.8 g/dL (12.4-15.3); Immature Granulocyte Absolute 0.06 K/mm3 (0.00-0.00); Immature Granulocyte Percent A 0.9 % (0.0-0.0); Lymphocytes Absolute Auto 0.72 K/mm3 (1.10-4.50); Lymphocytes Percent Auto 10.9 % (18.0-42.0); Mean Corpuscular HGB Conc 34.2 g/dL (32.0-36.0); Mean Corpuscular Hemoglobin 31.3 pg (27.0-31.0); Mean Corpuscular Volume 91.5 fL (78.0-102.0); Mean Platelet Volume 8.8 fl (8.7-11.0); Monocytes Absolute Auto 0.65 K/mm3 (0.10-0.90); Monocytes Percent Auto 9.9 % (2.0-11.0); Neutrophils Absolute Auto 5.1 K/mm3 (1.7-7.2); Neutrophils Percent Auto 76.6 % (50.0-70.0); Platelet Count Result 245 K/mm3 (150-420); Red Blood Count 3.77 M/mm3 (4.70-6.10); Red Cell Distribution Width 13.6 % (11.6-14.4); White Blood Count 6.6 K/mm3 (4.8-10.8)
[2022-09-21 05:35] LABS: INR 1.9; Prothrombin Time 19.4 Seconds (9.50-12.10)
[2022-09-21 05:38] LABS: Alanine Aminotransferase 37 U/L (16-63); Albumin Level 2.5 g/dL (3.4-5.0); Alkaline Phosphatase 76 U/L (46-116); Anion Gap 6 mmol/L (8-16); Aspartate Amino Transferase 32 U/L (15-37); Bilirubin,Total 0.4 mg/dL (0.00-1.00); Blood Urea Nitrogen 21 mg/dL (7-18); Calcium 8.5 mg/dL (8.5-10.1); Carbon Dioxide 29 mmol/L (21-32); Chloride 95 mmol/L (98-108); Estimated CRCL calculation 54 ml/min; Estimated Glomerular Filt Rate > 60; Glucose 96 mg/dL (70-99); Osmolality Calculated 273 mOsm/kg (285-295); Potassium 3.9 mmol/L (3.5-5.1); Sodium 130 mmol/L (136-145); Total Protein 7.7 g/dL (6.4-8.2)
[2022-09-21 08:00] VITALS: BP 174/100; PULSE 82; RESP 16; TEMP 36.6; O2SAT 95
[2022-09-21] MEDS: POTASSIUM CHLORIDE 20 MEQ TABLET 40 MEQ PO (08:11)
[2022-09-21 09:18] VITALS: PULSE 78
[2022-09-21] MEDS: DOXYCYCLINE HYCLATE 100 MG TABLET PO (09:18)
[2022-09-21] MEDS: carvediloL 12.5 MG TABLET 25 MG PO (09:18)
[2022-09-21] MEDS: lisinopriL 20 MG TABLET PO (09:18)
[2022-09-21] MEDS: FUROSEMIDE INJ 40 MG/4 ML VIAL IV PUSH (09:19)
--- NOTE | 2022-09-21 09:25 | PM.DS ---
DS: Admitting Diagnosis Discharge Date 09/21/2022 Admitting Diagnosis cellulitis, Hyponatremia, dehydration DS: Discharge Diagnosis Discharge Diagnosis (1) Cellulitis and abscess of face: Code(s): L03.211 - Cellulitis of face; L02.01 - Cutaneous abscess of face Status: Acute Assessment and Plan: IV cefepime and doxycycline Monitor progression or improvement Monitor vitals Discussed antibiotic plan with Infectious Disease pharmacist Continue Doxycycline, Cefdinir for 4 more days Pt also needs to see dermatology to ensure there is no cancer (2) CHF (congestive heart failure): Code(s): I50.9 - Heart failure, unspecified Status: Acute Assessment and Plan: IV Lasix Monitor for worsening Oral lasix change to 20 mg daily pt to follow up with PCP for labs (3) Acute hyponatremia: Code(s): E87.1 - Hypo-osmolality and hyponatremia Status: Acute Assessment and Plan: IV fluids at 75 Oral fluid restriction Monitor intake and output 119>123>127>128>129>130 this may acute on chronic (4) Back pain: Code(s): M54.9 - Dorsalgia, unspecified Status: Acute Assessment and Plan: p.r.n. pain medication (5) HTN (hypertension): Code(s): I10 - Essential (primary) hypertension Status: Acute Assessment and Plan: monitor vitals Continue home med (6) HLD (hyperlipidemia): Code(s): E78.5 - Hyperlipidemia, unspecified Status: Acute Assessment and Plan: stable continue home meds (7) Atrial fibrillation: Code(s): I48.91 - Unspecified atrial fibrillation Status: Chronic Assessment and Plan: continue beta-zahra Continue Coumadin Monitor PT INR (8) Hypokalemia: Code(s): E87.6 - Hypokalemia Status: Acute Assessment and Plan: potassium 2.5>2.9>3.7>3.9 patient currently on tele we will discontinue tele after he being given IV potassium he has been on some limited treated with no abnormalities noticed in the past 24 hours will send home with oral potassium DS: Summary Hospital Course Reason for hospitalization: Cellulitis, hyponatremia, Weakness, hypertension Hospital Course: ?this 86-year-old male whoWas admitted to the hospital with some facial cellulitis hyponatremia, urinary retention with UTI patient has an extensive past medical history of some bladder cancer as well as congestive heart failure, atrial fibrillation, hypertension, back pain, prostate cancer, mass and lung.? patient was treated with some IV Lasix IV antibiotics and close monitoring with anticoagulation. Patient was seen by Physical therapy shown some improvement patient was placed on a fluid restriction as well as strict intake and output sodium has improved not normal but improved to 130 . Patient appears to be short of breath although he is not purple patient. Patient is breathing heavily. Bhupendra has informed me he sees a supplemental manager and he follows closely with him. At this time we will discharge patient where he will continue to follow-up with his primary care provider his supervisor money room as well as a supplemental manager. He will go home on oral doxycycline as well as cefdinir as I have discussed with the Infectious Disease pharmacist to make sure that these medications will add occultly tree his infections. Discussion with patient about making sure he takes his medications as well as how he is taking his anticoagulation explained the port and to the patient and his patient does have some confusion or dementia noted. Time Spent with Patient Time attestation: Total time spent providing and/or coordinating discharge services: Exam Narrative: GENERAL:Well-appearing, well-nourished, and in no acute distress. HEAD:Normocephalic, atraumatic. EYES: PERRLA and EOMI. ENT: Nares clear, no rhinorrhea or epistaxis. Mucous membranes moist. CHEST: C coarse with some crackles to auscultation. No respirato
--- NOTE | 2022-09-21 10:59 | PC.NURSE ---
Pt discharded to Family care. RN gave pt and spouse discharge instructions regarding medications: dosages,times and SE. Instructed regarding fall precautions and follow up appointments. Pt and verbalized understanding.
--- NOTE | 2022-09-22 09:56 | PC.NURSE ---
Spouse states they received and understood the discharge instructions. Has no other comments.
== END 2022-09-21 10:50 | disposition home or self-care (01) | DRG 603 ==
LOC: CHSED 09:55 → CHS2ND 09:57
PROVIDERS: Nurse Practitioner Family; Admitting Provider Internal Medicine; Emergency Provider Emergency Medicine; PCP Internal Medicine; Visit Provider Internal Medicine
DX: L03.211 Cellulitis of face (principal); L02.01 Cutaneous abscess of face; E87.1 Hypo-osmolality and hyponatremia; I48.20 Chronic atrial fibrillation, unspecified; I11.0 Hypertensive heart disease with heart failure; I50.9 Heart failure, unspecified; N40.1 Benign prostatic hyperplasia with lower urinary tract symptoms; N39.498 Other specified urinary incontinence; M54.9 Dorsalgia, unspecified; E78.5 Hyperlipidemia, unspecified; E87.6 Hypokalemia; R35.0 Frequency of micturition; Z85.51 Personal history of malignant neoplasm of bladder; Z85.46 Personal history of malignant neoplasm of prostate; Z79.01 Long term (current) use of anticoagulants
CPT/HCPCS: 36415; 71045; 80048; 80053; 81001; 83880; 85025; 85027; 85610; 85730; 87040; 93005; 96361; 96365; 96366; 96367; 96375; 96376; 97110; 97161; 97165; 97530; 97535; 99285; A9270; G0378; J0360; J0696; J1940; J2543; J3480; J7030

== ENCOUNTER 2022-10-09 10:31 | Outpatient (CLI) | payer MEDICARE, SELFPAY ==
[2022-10-09 11:01] LABS: Partial Thromboplastin Time 37.1 SEC (23.90-30.70); Prothrombin Time 20.3 Seconds (9.50-12.10)
== END 2022-10-09 10:32 | disposition home or self-care (01) ==
LOC: CHSLAB 10:33
PROVIDERS: PCP Internal Medicine; Visit Provider Anesthesiology
DX: Z01.818 Encounter for other preprocedural examination (principal); Z79.01 Long term (current) use of anticoagulants
CPT/HCPCS: 36415; 85610; 85730

== ENCOUNTER 2022-10-13 01:56 | Day surgery (SDC) | payer MEDICARE, SELFPAY ==
[2022-10-02 16:09] VITALS: BMI 31.4
--- NOTE | 2022-10-02 16:31 | PC.NURSE ---
Report to the Outpatient Waiting Room, entrance under the green pavilion located off [facility], at time ___7:30AM____ on date __10/13/22 . Planned Procedure Time: __9:30AM . Time changes happen often and if your time is changed the preop area will call you the afternoon before. - You and your visitor will be asked to self-screen and do not enter if you have any COVID symptoms. - Only one visitor is requested with a max of two and NO children visitors are allowed at this time. - The patient visitor may be requested to leave or wait in car when not with patient due to distancing restrictions. - A mask is optional within the hospital at this time. Patients may have clear liquids (water, carbonated beverages, clear teas, apple juice) until 3 hours prior to surgery with a maximum of 20 ounces. - No food from midnight until time of surgery Take the following medications with a SIP of water the morning of surgery: ___CARVEDILOL DO NOT STOP ANY OF YOUR OTHER PRESCRIPTION MEDICATIONS PRIOR TO SURGERY ?EXCEPT THE FOLLOWING Medications to discontinue per physician ____HOLD COUMADIN 7 DAYS PRE-OP PER DR QUIGLEY(PER PATIENT)- LAST DOSE 10/06/22, HOLD ALL VITAMINS/SUPPLEMENTS 3 DAYS PRE-OP- LAST DOSE 10/09/22 Please no make-up, nail eritrean, hairspray, perfume, deodorant, or body powder the day of surgery. No jewelry (including any body piercings) or valuables the day of surgery, leave them at home. Please take a shower or bath the night before, or the morning of, surgery with an antibacterial soap. Wear comfortable, loose fitting clothing. Children are encouraged to wear pajamas. - Jewelry must be removed prior to entering the operating room. Rings and piercings that are not removed may be cut off. - The hospital will not accept responsibility for valuables. - Please leave all valuables, including medications, at home the day of surgery. If you are going home after surgery, a licensed p d driver must drive you home. - NO public transportation without another adult if you receive anesthesia. - We recommend that an adult stay with you for 24 hours following discharge. - We also recommend that you do not drive, make important decision, drink alcoholic beverages, or take any drugs that were not prescribed by your health care provider for at least 24 hours after your discharge time. Follow any additional instructions given to you from your surgeon. If you or anyone in your household have experienced Covid symptoms in the past week, please notify your surgeon or the nurse liaison at the phone number below for possible testing. Telephone instructions given to __PATIENT'S -LAKESHIA__and asked if any additional questions and then verbalized understanding. Patient advised to call surgeon office or pre surgery nurse liaison [phone] if any additional questions.
[2022-10-13] VITALS (9 sets, daily range): BP systolic 129–163; BP diastolic 78–112; PULSE 76–89; RESP 13–25; TEMP 36.3–36.6; O2SAT 98–100
--- NOTE | ~2022-10-13 | XR_ITS ---
EXAMINATION: XR fluoroscopy no charge DATE: 10/13/2022 09:04 INDICATION: Urethral stricture. TECHNIQUE: 2 intraoperative fluoroscopic views of the pelvis were obtained. I was not present. Fluoro scopy exposure time was 14 seconds. COMPARISON: None. FINDINGS: Surgical clips overlie the pelvis. There are changes of anterior and posterior fusion proce dures in lumbosacral spine. There are changes of sacroplasty. There is a dilator in the urethra. IMPRESSION: 1. Dilation procedure of the urethra. Reviewed, dictated and finalized at location A.
--- NOTE | 2022-10-13 07:28 | WPDHPUPDATE1 ---
History and Physical Update Update Date/Time: 10/13/22 07:28 History and Physical has been reviewed, including an updated exam of the patient. There are NO changes in the patient's condition. Risks, benefits, and alternatives have been discussed and questions answered. Patient agrees to proceed with procedure. Proceed with cysto, retrograde urethrogram, urethral dilation
[2022-10-13] MEDS: LACTATED RINGERS 1,000 ML 30 ML IV CONT (08:00)
[2022-10-13 08:24] LABS: Sodium 132 mmol/L (137-145)
--- NOTE | 2022-10-13 08:26 | WPDANESEPPF ---
Anes - Initial Pre Proc Eval Procedure: Operation Date: 10/13/22 09:30 Proposed Procedures p Cystoscopy, Retrograde Urethrogram, Urethral Dilation - Pillo Mckee MD Date/Time: 10/13/22 08:26 Surgeon: Pillo Mckee MD Pre Op Diagnosis: urethral stricture Patient Data Age: 86 Gender: M Height: 1.83 m Weight: 105 kg Allergies Allergy/AdvReac Type Severity Reaction Status Date / Time No Known Allergies Allergy Verified 10/02/22 16:01 Home Medications Medication Instructions Recorded Confirmed Type carvedilol 25 mg tablet 25 mg PO Q12H #180 tabs 03/20/22 10/02/22 Rx simvastatin 40 mg tablet 40 mg PO QHS #90 tabs 07/15/22 10/02/22 Rx cefdinir 300 mg capsule 300 mg PO Q12H 4 days #8 caps 09/21/22 10/02/22 Rx doxycycline hyclate 100 mg tablet 100 mg PO Q12HR 4 days #8 tabs 09/21/22 10/02/22 Rx potassium chloride 20 mEq 40 meq PO DAILY@0800 30 days #60 09/21/22 10/02/22 Rx tablet,extended release (K-Tab) tabs warfarin 3 mg tablet 3 mg PO 4XW #90 tabs 09/21/22 10/02/22 Rx calcium 600 mg capsule 600 mg PO DAILY 10/02/22 10/02/22 History furosemide 20 mg tablet (Lasix) 20 mg PO QAM 10/02/22 10/02/22 History losartan 50 mg tablet 50 mg PO QAM 10/02/22 10/02/22 History warfarin 4 mg tablet 4 mg PO QMWF 10/02/22 10/02/22 History Laboratory Tests 10/13/22 10/13/22 08:10 08:10 PT Pending INR Pending APTT Pending Sodium 132 mmol/L L mmol/L (137-145) Patient hx anesthesia problems: none Family hx anesthesia problems: none Results Review: All pre-operative results and documents have been reviewed as part of the pre-operative evaluation. [facility] Past Medical History Medical History Atrial fibrillation Chronic low back pain without sciatica Chronic pain of right ankle CKD (chronic kidney disease) stage 3, GFR 30-59 ml/min Diastolic dysfunction Dyslipidemia Essential (primary) hypertension History of prostate cancer Hypokalemia Mass of left lung Prostate cancer (~2015) Right retinal detachment 03/2016 Unspecified osteoarthritis, unspecified site Vitamin D deficiency Surgical History Surgical History History of back surgery (~2010) Sacrolplasty L3-5 Lumbar Decompression L4-5 w/ Fusion History of bilateral knee replacement (~1999) 1999, 2004 S/P TURP 10/2015 Family History Family History Sibling Hypertension Father Family history of lung cancer, Onset Age: 68 Mother Family history of dementia, Onset Age: 93 Mother Hypertension Familial Alzheimer's disease of late onset Social History Social History Smoking packs per day: 1 Smoking cigarettes per day: 20.0 Years smoked: 35 Smoking pack-years: 35.00 Smoking status: Former smoker Tobacco type: cigarettes and cigars Second hand tobacco smoke exposure: No Smoking end date: 01/16/03 Additional smoking assessment comments: STOPPED CIGARS 2011 Alcohol intake: never Alcohol use details: quit drinking alcohol in 2010 Substance use: never Substance use type: does not use Lack of Transportation: No Lack of Food: Never True Current Housing: I Have Housing Concerned About Future Housing: No Difficulty Paying Gas/Electric Bills: No Difficulty Paying for Meds: No Currently Unemployed: No Education: Decline to Answer Difficulty w/ Childcare or Family Care: No Living arrangements: with family Additional living arrangements comments: Occupation/Education: retired Gender identity (if verbalized by the patient): Male Sexual Orientation (if Verbalized by the Patient): Straight or Heterosexual Spiritual care concerns: No Agree to blood products: Yes Anes - Eval Final PreProce
[2022-10-13 08:27] LABS: INR 1.3; Prothrombin Time 15.6 Seconds (11.1-14.7)
[2022-10-13 08:28] LABS: Partial Thromboplastin Time 28.7 SECONDS (22.3-36.8)
[2022-10-13] MEDS: ceFAZolin 2 GM/D5W 50 ML 2 GM/50 ML BAG IVPB (08:33)
[2022-10-13] MEDS: LIDOCAINE HCL 2% GEL UROJET 10 ML PKG MUCOUS MEM (08:46)
--- NOTE | 2022-10-13 08:59 | W.PM.PROC2 ---
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 Once anesthesia was obtained was placed in dorsal lithotomy position and prepped and draped usual sterile fashion. Patient has a fossa navicularis stricture which we used male sounds to dilate up to 22 Mauritanian. Nineteen Mauritanian scope was then inserted into the meatus. He has a dense bulbar urethral stricture. We had to manipulate an angled Glidewire through this under fluoroscopic guidance. We then used the Amplantz dilators to dilate up to 24 Mauritanian. The scope was then reinserted. He has some bullous edema on the lobes of the prostate near the bladder neck. Otherwise the bladder has no evidence of tumors at this time. 2% viscous lidocaine was inserted into the urethra. Eighteen Mauritanian Elba tip was then passed over the superstiff wire into the bladder. 10 cc were placed in the balloon. Patient is taken recovery stable condition. Will plan on removing the Hutchison on Wednesday or Wednesday and teaching him self dilation to keep the stricture open. Please send a copy of this op note to my office Estimated Blood Loss 0 Drains Yes Packing No Pathology None sent Complications No immediate complications Condition Stable Disposition PACU
[2022-10-13] MEDS: fentaNYL CITRATE INJ (*CRX) 100 MCG/2 ML VIAL 25 MCG IV PUSH ×4 (09:29→10:35)
[2022-10-13] MEDS: HYOSCYAMINE SULFATE 0.125 MG TABLET PO (09:41)
[2022-10-13] MEDS: oxyCODONE HCL (*CRX) 5 MG TAB IR PO (10:33)
--- NOTE | 2022-10-13 11:47 | SUR.PHASEII ---
1110 adorno care education provided and care notes sent and explained for how to drain large bag and usage of leg bag understanding stated by and patient. states will call office for appointment today when arrives at home and will question when to start warfin. Adorno drainage clear yellow at this time.
== END 2022-10-13 11:25 | disposition home or self-care (01) ==
PROVIDERS: Anesthesiology; PCP Internal Medicine; Visit Provider Urology
PROC: (CPT 52352; principal; 2022-10-13 09:30)
DX: N35.916 Unspecified urethral stricture, male, overlapping sites (principal); I48.91 Unspecified atrial fibrillation; I13.10 Hypertensive heart and chronic kidney disease without heart failure, with stage 1 through stage 4 chronic kidney disease, or unspecified chronic kidney disease; N18.30 Chronic kidney disease, stage 3 unspecified; E78.5 Hyperlipidemia, unspecified; E55.9 Vitamin D deficiency, unspecified; Z85.46 Personal history of malignant neoplasm of prostate; Z87.891 Personal history of nicotine dependence; Z79.01 Long term (current) use of anticoagulants
CPT/HCPCS: 52281; 36415; 84295; 85610; 85730; 99199; A9270; C1726; C1769; J0690; J1100; J2405; J2704; J3010; J7120

== ENCOUNTER 2023-07-02 12:33 | Outpatient (CLI) | payer MEDICARE, SELFPAY ==
--- NOTE | ~2023-07-02 | PE_ITS ---
EXAMINATION: PET_PETPSMAST_PT DATE: 07/02/2023 14:48 INDICATION: Prostate cancer TECHNIQUE: 9.144 mCi of pipflufolastat F-18 (18-F-DCFPyL) was administered i.v. Low dose computed to mography (CT) images were acquired from the base of the brain to the base of the brain to the proxima l thighs for attenuation correction and anatomic localization. Positron emission tomography (PET) ashly ges were acquired in the same distribution beginning 91 minutes after injection. Images including fus ed PET/CT images were reconstructed in axial, coronal, and sagittal planes. Automated exposure contro l technique was employed. The dose-length product was 1025.50mGy-cm. COMPARISON: Chest CT dated 01/29/2022 and PET/CT dated 03/08/2018 FINDINGS: Head/neck: Typical pattern of symmetric physiologic increased activity in the lacrimal, parotid and submandibula r glands as well as along the mucosa of the nasal and oral cavities, the attila-, naso- and hypopharynx, the glottis and esophagus. There is also a typical pattern of symmetric tiny foci of mild likely phy siologic neural ganglia uptake at a few bilateral cervical neural foramina. No pathologically enlarge d cervical lymphadenopathy or suspicious foci of increased uptake in the visualized head or neck. Chest: Mild emphysema. Stable appearance of a peripheral masslike region of round atelectasis with a few clint cifications consistent with old granulomatous disease at the posterolateral left lower lobe adjacent to a few old healed left-sided rib fractures with pathology from prior percutaneous biopsy performed on 07/27/2017 demonstrating nodular fibrosis . Additional unchanged smaller regions of peripheral pare nchymal consolidation/round atelectasis at the lingula and right lower lobe. Few unchanged small kenna pheral regions of groundglass opacity in the bilateral upper lobes. New 5-6 mm noncalcified nodule wi thout abnormal PSMA activity in the posterior segment of the right upper lobe. No pulmonary edema or pleural effusion. Mild cardiomegaly with biatrial enlargement. Atherosclerotic coronary artery calcif ication is. No pericardial effusion. Thoracic aorta is normal in caliber. No pathologically enlarged or PSMA avid thoracic lymphadenopathy. Abdomen/pelvis/proximal thighs: Physiologic renal accumulation and excretion of activity in the kidneys, bladder and along portions o f ureters. There is wall thickening of the decompressed bladder. Metallic status post prostatectomy w ith surgical clips versus brachytherapy seeds at the periphery of the prostatectomy bed. There is an approximately 1-1.5 cm nodular focus of increased PSMA uptake in the left seminal vesicle suspicious for local invasion of prostate cancer. There are few bilateral photopenic low-attenuation cysts in th e bilateral kidneys, the largest at the upper pole of the right kidney measuring 4.2 cm. Normal degre e and slightly heterogenous pattern of increased uptake throughout the liver and spleen without radio logic correlate or dominant PSMA avid lesion. A few small splenic calcifications consistent with old granulomatous disease. The gallbladder, pancreas and bilateral adrenal glands are normal. Moderate up take scattered throughout the bowels with typical duodenal and proximal jejunal predominance and with out radiologic correlate, also likely physiologic. No other abnormal foci of increased uptake or path ologically enlarged lymphadenopathy in the abdomen, pelvis or proximal thighs. Small fat-containing b ilateral inguinal hernias. Musculoskeletal: Very small focus of increased uptake with maximal SUV of 5.0 at the lateral right fourth rib without evident correlate on CT imaging suspicious for metastatic disease. No other suspicious lytic, blastic or PSMA avid bone lesions. There are multiple compression and burst fractures throughout the thoraci c and lumbar spine. Combined instrumented L4-L5 anterior and posterior spinal fusion with in
== END 2023-07-02 12:34 | disposition home or self-care (01) ==
PROVIDERS: PCP Internal Medicine; Visit Provider Urology
DX: C61 Malignant neoplasm of prostate (principal); J43.9 Emphysema, unspecified; R91.8 Other nonspecific abnormal finding of lung field
CPT/HCPCS: 78815; A9595

== ENCOUNTER 2024-02-02 09:54 | Outpatient (CLI) | payer MEDICARE, SELFPAY ==
--- NOTE | ~2024-02-02 | XR_ITS ---
3 VIEWS THORACIC SPINE Ordering provider: Kevin Sheldon MD History: . Back pain, osteoporosis,CHRONIC?,NKI . Comparison: None. FINDINGS: VERTEBRAL BODIES: Severe kyphosis. Compression fractures are seen in the midthoracic areas which are unchanged from previous examination. Increased L1 compared to previous study is noted compared to pre vious study. Dextroscoliosis. DISK SPACES: Multilevel degenerative disc disease. SOFT TISSUES: Vascular calcifications. IMPRESSION: Increased L1 compared to previous study is noted compared to previous study. Other appearances are un changed. Reviewed, dictated and finalized at location A. IMPRESSION: Increased L1 compared to previous study is noted compared to previous study. Ot her appearances are unchanged.
--- NOTE | ~2024-02-02 | XR_ITS ---
3 VIEWS LUMBAR SPINE Ordering provider: Kevin Sheldon MD History: . Back pain, osteoporosis,?CHRONIC,NKI . Comparison: April 08, 2022 FINDINGS: VERTEBRAL BODIES: Increased Compression of T12 is noted compared to the previous study. Postoperative changes in the lower lumbar area. Degenerative changes of the spine. Slight loss of vol ume of L2 unchanged.. Otherwise, No visible acute fracture or subluxation in the lumbar area. DISK SPACES: Narrowing of the disc spaces L1-L2, L2-L3 and L3-L4. Disc spacers seen at the level of L 4-L5. SOFT TISSUES: Aortic calcification. IMPRESSION: Increased compression of T12 and L1 compared to previous study which may be acute or chronic. Old compression fracture of L2 unchanged. Multilevel degenerative disc disease. Reviewed, dictated and finalized at location A. IMPRESSION: Increased compression of T12 and L1 compared to previous study which may be acu te or chronic. Old compression fracture of L2 unchanged. Multilevel degenerative disc disease.
== END 2024-02-02 09:55 | disposition home or self-care (01) ==
LOC: CHSIMG 09:57
PROVIDERS: PCP Internal Medicine; Visit Provider Internal Medicine
DX: M54.9 Dorsalgia, unspecified (principal); M81.0 Age-related osteoporosis without current pathological fracture; M48.54XA Collapsed vertebra, not elsewhere classified, thoracic region, initial encounter for fracture; M48.56XA Collapsed vertebra, not elsewhere classified, lumbar region, initial encounter for fracture; M51.36 Other intervertebral disc degeneration, lumbar region
CPT/HCPCS: 72072; 72100

== ENCOUNTER 2024-02-05 10:41 | Outpatient (CLI) | payer MEDICARE, SELFPAY ==
--- NOTE | ~2024-02-05 | MR_ITS ---
EXAMINATION: MR lumbar spine wo con DATE: 02/05/2024 11:44 INDICATION: Low back pain. T12 compression fracture. TECHNIQUE: Magnetic resonance imaging (MRI) of the lumbar spine was performed without intravenous con trast. Sequences included sagittal T2-weighted FSE, sagittal T2-weighted FS FSE, sagittal T1-weighted FSE, and axial T2-weighted FSE. COMPARISON: 09/04/2016 FINDINGS: Instrumented L4-L5 anterior and posterior spinal fusion with metallic interbody bone graft cage and b ilateral vertical claudine and pedicle screws. Low signal intensity methylmethacrylate is also seen at the bilateral sacral ala at the level of S1. 4 mm retrolisthesis L5 on S1 with moderate to severe disc h eight loss. 3 mm retropulsion at L3 on L4 with moderate to severe associated disc height loss. Chronic compression fracture at T12 with mild central depression of the superior endplate chronic bur st fracture at L2 with mild central endplate depression of the inferior endplate and 3 mm retropulsio n along the inferior endplate, both of these fractures are new since the prior MRI but without marrow edema to suggest recent fracture. There is marrow edema associated with recent burst fractures of L1 and L3. At L3 there is 20% right-sided predominant vertebral body height loss and there is up to 2 m m retropulsion along the posterior wall. At L1 there is only mild central vertebral body height loss however there is a large fluid collection filling the horizontal fracture plane which measures up to 12 mm in AP thickness which suggests prior up to 80% central vertebral body height loss. 4 mm retropu lsion at the superior aspect of the posterior wall. T1 hyperintense hemangioma at T11. The conus medu llaris terminates at L1. There is normal signal in the caudal spinal cord. There are multiple bilater al T2 hyperintense renal cysts the largest on the right measuring 4.3 cm. There is moderate fatty atr ophy of the lumbar paraspinal musculature and in the visualized medial portion of the bilateral glute al muscles. The following disc levels are specifically discussed: T11-T12: Disc is mildly bulging. There is mild right and moderate left facet joint osteoarthritis. Th ere is mild bilateral, left greater than right neural foraminal stenosis. There is mild central canal stenosis. T12-L1: The disc does not extend beyond the endplate margin. There is however mild central canal sten osis just below level of the disc space resulting from the L1 retropulsion. There is moderate bilater al facet joint osteoarthritis. There is mild bilateral neural foraminal stenosis. L1-L2: Disc is mildly bulging. There is moderate bilateral facet joint osteoarthritis. There is moder ate left and mild to moderate right neural foraminal stenosis. There is mild central canal stenosis. L2-L3: Disc is minimally bulging beyond the retropulsed L2 inferior endplate. There is moderate bilat eral facet joint osteoarthritis. There is altered left and mild to moderate right neural foraminal st enosis. There is mild to moderate central canal stenosis with narrowing of the left and right lateral recesses. L3-L4: Disc is mildly bulging. There is at least moderate facet joint osteoarthritis however evaluati on is limited by magnetic field artifact from the bilateral L4 pedicle screws. There is moderate bila teral neural foraminal stenosis. There is mild central canal stenosis. L4-L5: There is fusion of the disc space and bilateral facet joints. There is mild bilateral neural f oraminal stenosis. There is mild central canal stenosis. L5-S1: The disc does not extend beyond the more posterior L5 endplate margin. There is mild to modera te facet joint osteoarthritis. There is moderate bilateral neural foraminal stenosis. There is mild c entral canal stenosis. IMPRESSION: 1. Combination of chronic T12 compression fracture, chronic L2 burst fracture and acute to subacute L 1 and L3 burst fractur
== END 2024-02-05 10:42 | disposition home or self-care (01) ==
LOC: CHSIMG 10:43
PROVIDERS: PCP Internal Medicine; Visit Provider Internal Medicine
DX: M54.50 Low back pain, unspecified (principal); S32.021A Stable burst fracture of second lumbar vertebra, initial encounter for closed fracture; S32.011A Stable burst fracture of first lumbar vertebra, initial encounter for closed fracture; S32.031A Stable burst fracture of third lumbar vertebra, initial encounter for closed fracture; Z98.1 Arthrodesis status; M43.06 Spondylolysis, lumbar region
CPT/HCPCS: 72148

== ENCOUNTER 2024-02-23 10:13 | Outpatient (CLI) | payer MEDICARE, SELFPAY ==
[2024-02-23 10:53] LABS: INR 1.2; Prothrombin Time 12.5 Seconds (9.50-12.1)
== END 2024-02-23 10:14 | disposition home or self-care (01) ==
LOC: CHSLAB 10:17
PROVIDERS: PCP Internal Medicine; Visit Provider Pain Medicine Pain Medicine
DX: M80.08XA Age-related osteoporosis with current pathological fracture, vertebra(e), initial encounter for fracture (principal); Z79.01 Long term (current) use of anticoagulants
CPT/HCPCS: 36415; 85610

== ENCOUNTER 2024-05-09 10:30 | Outpatient (CLI) | payer MEDICARE, SELFPAY ==
[2024-05-09 10:50] VITALS: BP 160/72; PULSE 72; RESP 14; TEMP 36.6; O2SAT 97
[2024-05-09] MEDS: ZOLEDRONIC ACID 5 MG/100 ML 100 ML 400 MG IVPB (10:50)
[2024-05-09 11:04] VITALS: BMI 27.8
[2024-05-09 11:25] VITALS: BP 139/83; PULSE 80; RESP 16
--- NOTE | 2024-05-09 11:25 | PC.NURSE ---
Patient here for IV Reclast. Education given to patient and his dtr. All concerns voiced answered. IV Reclast administered. SEE MAR/patient care notes. Tolerated well.
== END 2024-05-09 14:14 | disposition home or self-care (01) ==
PROVIDERS: PCP Internal Medicine; Visit Provider Nurse Practitioner Family
DX: M81.0 Age-related osteoporosis without current pathological fracture (principal)
CPT/HCPCS: 96374; J3489

== ENCOUNTER 2024-05-10 11:23 | Outpatient (CLI) | payer MEDICARE, SELFPAY ==
--- NOTE | ~2024-05-10 | XR_ITS ---
3 VIEWS LUMBAR SPINE Ordering provider: Mike Marcano, S[employer]IOR [employer]ACLE DEVELOPER History: . Age-related osteo w/ current pathological fracture . Comparison: February 02, 2024 FINDINGS: VERTEBRAL BODIES: Slight loss of volume of L2 is noted unchanged from previous examination. Vertebrop lasty with compression fractures seen in L1 and L3. Vertebroplasty also seen in the S1. Postoperative changes seen at the level of L4-L5 with a disc spacer. No visible fracture or subluxation. DISK SPACES: Disc spacer at the level of L4-L5. Narrowing of the disc L3-L4 and L5-S1. SOFT TISSUES: Atherosclerotic changes of aorta. Bilateral hip osteoarthritic changes. IMPRESSION: No acute osseous abnormality lumbar spine. Multilevel compression fractures with vertebroplasty. Postoperative changes also seen at the level of L4-L5. Reviewed, dictated and finalized at location A. IMPRESSION: No acute osseous abnormality lumbar spine. Multilevel compression fractures with vertebroplasty. Postoperative changes als o seen at the level of L4-L5.
== END 2024-05-10 11:24 | disposition home or self-care (01) ==
PROVIDERS: PCP Internal Medicine; Visit Provider Nurse Practitioner Family
DX: M80.08XA Age-related osteoporosis with current pathological fracture, vertebra(e), initial encounter for fracture (principal)
CPT/HCPCS: 72110

== ENCOUNTER 2024-06-09 11:51 | Outpatient (NON) | payer MEDICARE, SELFPAY ==
[2024-06-09 12:34] LABS: Prothrombin Time 66.9 Seconds (9.64-11.0)
[2024-06-09 12:35] LABS: INR 7.3
== END 2024-06-09 11:52 | disposition home or self-care (01) ==
LOC: CHSLAB 11:54
PROVIDERS: PCP Internal Medicine; Visit Provider Internal Medicine
DX: I48.91 Unspecified atrial fibrillation (principal)
CPT/HCPCS: 85610